=== PATIENT | male | born 1960 | race Caucasian/White ===

== ENCOUNTER 2024-03-13 14:10 | Inpatient (IN) ==
[2024-03-13 14:52] LABS: Hemoglobin 13.1 g/dl (14.0-18.0); Mean Corpuscular Hemoglobin 28.7 pg (25.0-34.0); Mean Corpuscular Hgb Conc 33.6 g/dL (32.0-36.0); Mean Corpuscular Volume 85.5 fL (80.0-100.0); Mean Platelet Volume 10.5 fL (9.4-12.4); Platelet Count 351 K/uL (130-400); RDW Coefficient of Variation 13.3 % (11.5-14.5); RDW Standard Deviation 41.6 fL (36.4-46.3); Red Blood Count 4.56 M/uL (4.70-6.10); White Blood Count 15.95 K/ul (4.8-10.8)
[2024-03-13 15:03] LABS: Partial Thromboplastin Ratio 1.3; Partial Thromboplastin Time 34 Seconds (21-31)
[2024-03-13 15:12] LABS: Albumin Globulin Ratio 1.1 (0.9-2); Albumin Level 3.8 gm/dl (3.4-5.0); BUN Creatinine Ratio 14.4 (10-20); Bilirubin,Total 0.5 mg/dl (0.2-1.0); Calcium 9.1 mg/dl (8.6-10.3); Creatinine Clr Calc Pharmacy 20.2 ml/min; Est GFR (African American) 16.2 ml/min; Est GFR (Non-African American) 13.9 ml/min; Globulin 3.4 gm/dl (2.5-4.0); Magnesium 1.9 mg/dl (1.7-2.4); Potassium 3.8 mmol/L (3.5-5.1); Total Protein 7.2 gm/dl (6.0-8.3)
--- NOTE | 2024-03-13 15:21 | XRay Report ---
SINGLE VIEW CHEST CLINICAL HISTORY: Sepsis. FINDINGS: A PA chest radiograph is compared to study dated 03/17/2015. The cardiomediastinal silhouette is unremarkable noting atherosclerotic calcification of the thoracic aorta. There are scattered calc ified granulomas, as well as scattered foci of parenchymal scarring. No airspace consolidation or ple ural effusion is identified. No pneumothorax is seen. The bony thorax is grossly intact. IMPRESSION: No acute cardiopulmonary abnormality. ACT 112: Negative or not required by law. Electronically signed by: Min Harrington M.D. 03/13/2024 3:20 PM
[2024-03-13 15:54] LABS: Basophils # (auto) 0.06 K/uL (0.00-0.20); Basophils % (auto) 0.4 %; Eosinophils # (auto) 0.17 K/uL (0.00-0.50); Eosinophils % (auto) 1.1 %; Immature Granulocytes # (auto) 0.06 K/uL (0.01-0.20); Immature Granulocytes % (auto) 0.4 %; Lymphocytes # (auto) 7.22 K/uL (1.20-3.40); Lymphocytes % (auto) 45.3 %; Monocytes # (auto) 0.99 K/uL (0.11-0.59); Monocytes % (auto) 6.2 %; Neutrophils # (auto) 7.45 K/uL (1.40-6.50); Neutrophils % (auto) 46.6 %; Polychromasia 1+
[2024-03-13 16:09] LABS: Appearance Urine Clear (Clear); Bacteria Urine Automated None Seen (None Seen); Bilirubin Urine Negative (Negative); Blood Urine Trace (Negative); Color Urine Yellow; Epithelial Cell Urine Auto 0-2 /hpf (0-2); Glucose Urine UA Negative (Negative); Ketones Urine Trace (Negative); Leukocyte Esterase Urine Trace (Negative); Nitrite Urine Negative (Negative); Protein Urine Trace (Negative); Urobilinogen Urine Negative (Negative); WBC Urine Automated 0-5 /hpf (0-5)
--- NOTE | 2024-03-13 16:21 | Emergency Department Note ---
Impression & Plan MORTEZA (acute kidney injury), Vomiting, Leukocytosis ED Provider Note NAME: AMBROCIO ENCINAS AGE: 64 SEX: M : 1960 ARRIVES VIA: Walk-In INFORMANT: Patient ED PROVIDER(S): Frankie Nascimento DO CHIEF COMPLAINT: weakness HPI: Patient is a 64-year-old male with a past medical history of diabetes, NSTEMI, CVA and CAD who presents to the ER for weakness. He notes he has not been feeling well for the past several days. He follow-up with his PCP and had blood work done which showed a creatinine of 6 and was referred in for MORTEZA. He notes on Monday he was having some vomiting and has been having diarrhea for the past several days. Denies any chest pain or shortness of breath. No dysuria, urgency, or frequency. No other exacerbating or remitting factors. He thinks he was drinking slightly less than usual but believes that he has increased that intake. ADDITIONAL HISTORY OBTAINED: Per HPI Chronic Medical/Social Conditions Affecting Care: Per HPI PAST MEDICAL HISTORY:See Below PAST SURGICAL HISTORY:See Below FAMILY HISTORY:See Below SOCIAL HISTORY:See Below HOME MEDICATIONS:See Below ALLERGIES:See Below VITALS:See Below PHYSICAL EXAMINATION: GENERAL: Sitting up in bed, alert, well appearing, well nourished, no distress, non-toxic EYE EXAM: normal conjunctiva. OROPHARYNX: no exudate, no erythema, lips, buccal mucosa, and tongue normal and mucous membranes are moist NECK: supple, no nuchal rigidity, no adenopathy, non-tender LUNGS: Clear to auscultation. Normal chest wall mechanics HEART: no murmurs, S1 normal and S2 normal ABDOMEN: abdomen soft, non-tender, normo-active bowel sounds, no masses, no rebound or guarding. BACK: Back is symmetrical on inspection and there is no deformity, no midline tenderness, no CVA tenderness. SKIN: no rashes and no bruising UPPER EXTREMITIES: upper extremities are grossly normal. LOWER EXTREMITIES: No pitting edema. NEURO EXAM: Normal sensorium, cranial nerves II-XII grossly intact, normal speech, no gross weakness of arms, no gross weakness of legs. MEDICAL DECISION MAKING: Patient is a 64-year-old male who presents the ER for the above-stated complaint. IV was established medicals obtained. External records reviewed from [facility] and [facility] on creatinine was 1.5 back in 2022 and just within the past 24hrs was 6. Labs show leukocytosis of 15,000. No significant anemia. INR was unremarkable. BMP with a creatinine of 4.3 up from a baseline of 1. LFTs was fairly unremarkable. Bilirubin was normal. Pro-Ata 0.95. UA without infection. CT abdomen pelvis showed edema of the gallbladder wall and concern for acute cholecystitis. ID discussed case with the hospitalist for further evaluation management treatment. He was given 2 L normal saline as well as IV Zosyn. Discussed with general surgery who recommended a HIDA scan and ultrasound from the hospitalist and they will evaluate. Patient currently has no abdominal pain on exam. Will defer to general surgery for acute cholecystitis versus GI bug. Consults/Care Managements Discussions: Per MDM Triage Nursing notes reviewed. Limited review of prior medical records performed Vital Signs: reviewed and remarkable for no significant abnormalities Differential diagnosis: Infection, dehydration, metabolic abnormality, hypo/hyperglycemia, electrolyte disturbance, anemia, hypoxia, cardiac sources, intracerebral event, toxicologic, neurologic, as well as other pathologies. ER treatment provided: See below Diagnostics interpreted by me include EKG and cardiac monitoring as listed below: -Cardiac Monitoring: An order was placed for continuous cardiac monitoring. The monitor shows a rate of 80 with sinus rhythm. -ECG: none -Laboratory studies:Interpreted by me as stated above in MDM and shown below. Imaging studies: Xrays: As interpreted by me: Portable AP upright 1 view of the chest shows no focal infiltrate CTs show: CT abdomen pelvis shows acute cholecystitis Procedures:none Critical Care: None Past Med/Surg History Problem List (Updated 03/13/24 @ 19:10 by Frankie Nascimento DO) Leukocytosis (Acute) Vomiting (Acute) MORTEZA (acute kidney injury) (Acute) Tobacco use Sepsis Abnormal CT of the abdomen CKD (chronic kidney disease), stage III MORTEZA (acute kidney injury) Paroxysmal atrial flutter Diabetes mellitus, type II Elevated LFTs Leukocytosis Acute cholecystitis Complex renal cyst Diabetes Non-STEMI (non-ST elevated myocardial infarction) (Acute) Tachycardia (Acute) Hypertensive urgency (Acute) History of CVA (cerebrovascular accident) (Chronic) "2009 and 2012" Hypertension (Chronic) CAD (coronary artery disease) (Chronic) "s/p stent placement 2008" History of renal cell cancer (Chronic) "s/p left nephrectomy" CVA (cerebral infarction) (Acute) Stroke (Acute) Medical History High cholesterol Surgical History H/O heart surgery H/O hernia repair (09/30/12) H/O kidney removal (09/30/12) Family History Family/Other Hypertension Heart disease Social History Smoking Status: Former smoker Hx Alcohol Use: Yes marital status: current occupational status: employed 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 Feels Safe at Home: Yes Allergies Allergies Allergy/AdvReac Type Severity Reaction Status Date / Time No Known Allergies Allergy Unknown Verified 03/13/24 17:12 Home Meds Home Medications Medication Instructions Recorded Confirmed amoxicillin 875 mg-potassium 1 tab PO BID 03/13/24 03/13/24 clavulanate 125 mg tablet apixaban 5 mg tablet (Eliquis) 5 mg PO BID 03/13/24 03/13/24 aspirin 81 mg tablet,delayed 81 mg PO QAM 03/13/24 03/13/24 release atorvastatin 40 mg tablet 40 mg PO PM 03/13/24 03/13/24 dulaglutide 0.75 mg/0.5 mL 0.75 mg subcut WK 03/13/24 03/13/24 subcutaneous pen injector (Trulicity) hydrochlorothiazide 25 mg tablet 25 mg PO QAM 03/13/24 03/13/24 lisinopril 40 mg tablet 40 mg PO DAILY 03/13/24 03/13/24 metformin 500 mg tablet,extended 500 mg PO BID 03/13/24 03/13/24 release 24 hr metoprolol succinate 50 mg 75 mg PO BID 03/13/24 03/13/24 tablet,extended release 24 hr Previous Rx's Medication Instructions Recorded Nitroglycerin (Nitrostat) 0.4 mg sublingual UD PRN Chest 03/21/15 Pain ##30 Results & Data (ED) Vital Signs Vital Signs - 24 hr 03/13/24 14:13 03/13/24 16:55 03/13/24 17:19 Temperature 36.3 C L Temperature Source Oral Pulse Rate 95 H 84 Pulse Rate [Finger] 86 Pulse Rhythm Regular Respiratory Rate 20 24 Respiratory Effort / Characteristics Non-Labored Spontaneous Respiratory Depth Normal Blood Pressure 103/71 Blood Pressure [Right Arm] 112/91 Blood Pressure Mean 81 Blood Pressure Mean [Right Arm] 98 Pulse Oximetry 96 98 Oxygen Delivery Method Room Air Room Air Sepsis Recent Fever Within 48 Hours No Sepsis New/Unexplained Change in Mental Status No Sepsis Action Taken by Nursing No Action Required 03/13/24 19:00 Temperature Temperature Source Pulse Rate Pulse Rate [Finger] 81 Pulse Rhythm Respiratory Rate 18 Respiratory Effort / Characteristics Respiratory Depth Blood Pressure Blood Pressure [Right Arm] 117/72 Blood Pressure Mean Blood Pressure Mean [Right Arm] 87 Pulse Oximetry 98 Oxygen Delivery Method Room Air Sepsis Recent Fever Within 48 Hours Sepsis New/Unexplained Change in Mental Status Sepsis Action Taken by Nursing Laboratory Data 03/13/24 14:32 03/13/24 14:32 Lab Results 03/13/24 03/13/24 03/13/24 Range/Units 14:32 18:26 Unknown WBC 15.95 H (4.8-10.8) K/ul RBC 4.56 L (4.70-6.10) M/uL Hgb 13.1 L (14.0-18.0) g/dl Hct 39.0 L (42.0-52.0) % MCV 85.5 (80.0-100.0) fL MCH 28.7 (25.0-34.0) pg MCHC 33.6 (32.0-36.0) g/dL RDW Std Deviation 41.6 (36.4-46.3) fL RDW Coeff of Vidya 13.3 (11.5-14.5) % Plt Count 351 (130-400) K/uL MPV 10.5 (9.4-12.4) fL Immature Gran % (Auto) 0.4 % Neut % (Auto) 46.6 % Lymph % (Auto) 45.3 % [place] % (Auto) 6.2 % Eos % (Auto) 1.1 % Baso % (Auto) 0.4 % Neut # (Auto) 7.45 H (1.40-6.50) K/uL Lymph # (Auto) 7.22 H (1.20-3.40) K/uL [place] # (Auto) 0.99 H (0.11-0.59) K/uL Eos # (Auto) 0.17 (0.00-0.50) K/uL Baso # (Auto) 0.06 (0.00-0.20) K/uL Immature Gran # (Auto) 0.06 (0.01-0.20) K/uL Polychromasia 1+ PT 11.0 (9.0-12.0) Seconds INR 1.0 (0.9-1.1) APTT 34 H (21-31) Seconds PTT Ratio 1.3 Sodium 134 L (136-145) mmol/L Potassium 3.8 (3.5-5.1) mmol/L Chloride 98 (98-107) mmol/L Carbon Dioxide 23 (21-32) mmol/L Anion Gap 13 H (3-11) BUN 61 H (6-23) mg/dl Creatinine 4.23 H (0.6-1.4) mg/dl Est Cr Clr Drug Dosing 20.2 ml/min Est GFR ( Amer) 16.2 ml/min Est GFR (Non-Af Amer) 13.9 ml/min BUN/Creatinine Ratio 14.4 (10-20) Glucose 258 H (70-99(Fasting)) mg/dl Lactate 1.7 (0.4-2.0) mmol/L Calcium 9.1 (8.6-10.3) mg/dl Magnesium 1.9 (1.7-2.4) mg/dl Total Bilirubin 0.5 (0.2-1.0) mg/dl AST 48 H (13-39) U/L ALT 72 H (7-52) U/L Alkaline Phosphatase 106 H (34-104) U/L Troponin I High Sens 18.0 (0-20) pg/ml Total Protein 7.2 (6.0-8.3) gm/dl Albumin 3.8 (3.4-5.0) gm/dl Globulin 3.4 (2.5-4.0) gm/dl Albumin/Globulin Ratio 1.1 (0.9-2) Procalcitonin 0.95 H (0-0.5) ng/ml Urine Color Yellow Urine Appearance Clear (Clear) Urine pH 5.0 (4.5-7.5) Ur Specific [place] 1.020 (1.000-1.030) Urine Protein Trace H (Negative) Urine Glucose (UA) Negative (Negative) Urine Ketones Trace H (Negative) Urine Blood Trace H (Negative) Urine Nitrite Negative (Negative) Urine Bilirubin Negative (Negative) Urine Urobilinogen Negative (Negative) Ur Leukocyte Esterase Trace H (Negative) Urine WBC (Auto) 0-5 (0-5) /hpf Urine RBC (Auto) 6-10 H (0-2) /hpf U Hyaline Cast (Auto) 6-10 H (0-2) /lpf U Epithel Cells (Auto) 0-2 (0-2) /hpf Urine Bacteria (Auto) None Seen (None Seen) Administered Medications Discontinued Medications Sodium Chloride (Nss) 1,000 mls @ 999 mls/hr IV .Q1H1M HARVEY Stop: 03/13/24 18:30 Last Admin: 03/13/24 18:17 Dose: 999 mls/hr Documented By: Infusion: 03/13/24 17:55 Dose: Infused Documented By: Admin: 03/13/24 16:54 Dose: 999 mls/hr Documented By: CHANDU Piperacillin Sod/Tazobactam Sod (Zosyn) 4.5 gm in 100 mls @ 200 mls/hr IV NOW ONE Stop: 03/13/24 17:31 Last Infusion: 03/13/24 17:48 Dose: Infused Documented By: Admin: 03/13/24 17:14 Dose: 200 mls/hr Documented By: CHANDU Imaging Data Radiologist's Impression: Chest X-Ray 03/13/24 14:18 SINGLE VIEW CHEST CLINICAL HISTORY: Sepsis. FINDINGS: A PA chest radiograph is compared to study dated 03/17/2015. The cardiomediastinal silhouette is unremarkable noting atherosclerotic calcification of the thoracic aorta. There are scattered calcified granulomas, as well as scattered foci of parenchymal scarring. No airspace consolidation or pleural effusion is identified. No pneumothorax is seen. The bony thorax is grossly intact. IMPRESSION: No acute cardiopulmonary abnormality. ACT 112: Negative or not required by law. Electronically signed by: Min Harrington M.D. 03/13/2024 3:20 PM Abdomen/Pelvis CT 03/13/24 16:[address] WITHOUT CONTRAST CT DOSE: 1358.95 mGy.cm HISTORY: Nausea. Vomiting. TECHNIQUE: Multiaxial CT images of the abdomen and pelvis were performed without contrast. A dose lowering technique was utilized adhering to the principles of ALARA. COMPARISON STUDY: Renal CT 05/12/2021. Abdominal MRI 12/29/2020. FINDINGS: 4 mm triangular shaped nodule within the right middle lobe on image 15, unchanged. There is a 4 mm nodule within the left lower lobe on image 14, unchanged. These are likely benign given the stability. No pneumoperitoneum. No pneumatosis. No acute fractures. No suspicious lytic or blastic osseous lesions. Severe coronary artery calcifications are noted. Stable prominent right anterior diaphragmatic lymph node. Multiple small fat-containing midline supraumbilical hernias are again noted. There is a small fat-containing left inguinal hernia. There is a 2 cm duodenal diverticulum. Stable 5 mm hypodense lesion within the right hepatic lobe. This is too small to characterize but favors a cyst. The spleen is mildly enlarged measuring 14 cm in length. This remains unchanged. Multiple right adrenal gland nodules remain stable. Prior left nephrectomy. Multiple hypodense lesions within the right kidney are again noted. One of these lesions contains a 14 mm peripheral nodular focus best seen on image 138. There is an indeterminate intermediate density lesion within the mid right kidney image 164 measuring 10 mm. No right renal stones or right-sided hydronephrosis. 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 The unenhanced pancreas is unremarkable. There is gallbladder wall thickening with pericholecystic inflammatory change. This is consistent with acute cholecystitis. Normal caliber common bile duct. Mild periportal lymphadenopathy has slightly progressed. This may be reactive. Otherwise, no retroperitoneal lymphadenopathy. No pelvic lymphadenopathy or pelvic free fluid. Normal bladder. The prostate gland is enlarged. Suboptimal evaluation for bowel pathology due to the lack of intravenous and oral contrast. However, there is no definite bowel wall thickening or obstruction. Normal appendix. Fluid-filled colon. This could represent a diarrheal illness. IMPRESSION: 1. Gallbladder wall thickening with associated pericholecystic inflammatory change. This is consistent with an acute cholecystitis. Surgical consultation recommended. 2. Fluid-filled nondistended colon which may represent a diarrheal illness. 3. No evidence for a bowel obstruction. 4. Multiple right renal hypodense lesions again noted. The dominant hypodense lesion within the upper pole contains a peripheral 14 mm nodular density. This is increased in size in the interval. Follow-up nonemergent dedicated renal MRI is recommended for further evaluation. 5. There is also an indeterminate 10 mm mid right renal lesion. This can also be assessed on follow-up MRI. 6. Mild periportal lymphadenopathy which has progressed. This may be reactive to the acute cholecystitis. 7. Additional findings as described above. ACT 112: Negative or not required by law. Electronically signed by: Peter Jessica M.D. 03/13/2024 4:55 PM Discharge Plan Visit Data Chief Complaint: Urinary Symptoms Stated Complaint: ABN LABS, SEPTIC FROM BLADDER INFECTION ED Provider: Frankie Nascimento Discharge Problem: MORTEZA (acute kidney injury), Vomiting, Leukocytosis Forms Stand Alone Forms: [employer] Prescriptions Prescriptions: No Action Nitroglycerin (Nitrostat) 0.4 MG/1 TAB SUBLING TAB 0.4 mg Sublingual UD PRN (Reason: Chest Pain) Qty: 30 0RF metoprolol succinate 50 mg tablet extended release 24 hr 75 mg PO BID hydrochlorothiazide 25 mg tablet 25 mg PO QAM metformin 500 mg tablet extended release 24 hr 500 mg PO BID amoxicillin-pot clavulanate 875-125 mg tablet 1 tab PO BID Eliquis 5 mg tablet 5 mg PO BID Trulicity 0.75 mg/0.5 mL pen injector 0.75 mg SUBCUT WK Rx Instructions: ON SUNDAYS, PT IS UNSURE OF DOSE lisinopril 40 mg Tablet 40 mg PO DAILY atorvastatin 40 mg tablet 40 mg PO PM aspirin 81 mg Tablet,Delayed Release (Dr/Ec) 81 mg PO QAM Referrals Referrals: Marty Saul MD [Primary Care Provider] - Discharge Problem: Vomiting Qualifiers: Vomiting type: unspecified Nausea presence: unspecified Qualified Code(s): R 11.10 - Vomiting, unspecified Leukocytosis Qualifiers: Leukocytosis type: unspecified Qualified Code(s): D72.829 - Elevated white blood cell count, unspecified
--- NOTE | 2024-03-13 16:43 | History & Physical Report ---
Date of Service March 13, 2024 Assessment & Plan (1) Acute cholecystitis: (2) Sepsis: (3) Leukocytosis: (4) Elevated LFTs: Plan: Meets Sepsis Criteria Patient is 64 year old male with PMH CAD s/p stent, atrial flutter s/p DCCV, CVA, HTN, DM II, CKD III, renal CA s/p nephrectomy, depression, tobacco use presented to ER with c/o tactile fevers and chills x 5 days and abnormal labs with outpatient WBC: 21 and Cr: 6.0 on 03/12/24. In ER afebrile, BP: 95, R: 20, BP 103/71, 96% on room air. WBC: 15.9, procalcitonin: 0.95. T. bili: 0.5, AST: 48, ALT: 72, alk phos: 106. CT abd/pelvis: 1. Gallbladder wall thickening with associated pericholecystic inflammatory change. This is consistent with an acute cholecystitis. Surgical consultation recommended. 2. Fluid-filled nondistended colon which may represent a diarrheal illness. 3. No evidence for a bowel obstruction. Lactate pending Obtain blood culture In ER given Zosyn and 2L NSS IV Tylenol prn pain. Patient denies pain currently Zosyn IVF NPO Hold Eliquis General surgery consult. Was notified by ER physician CBC, CMP in am (5) MORTEZA (acute kidney injury): (6) CKD (chronic kidney disease), stage III: Plan: BUN: 61, Cr: 4.2. 03/12/24 Cr: 6.0. Prior baseline 1.6 IVF Hold HCTZ, lisinopril Monitor renal functions Monitor urine output Nephrology consult (7) Abnormal CT of the abdomen: Plan: CT abd/pelvis:Multiple right renal hypodense lesions again noted. The dominant hypodense lesion within the upper pole contains a peripheral 14 mm nodular density. This is increased in size in the interval. Follow-up nonemergent dedicated renal MRI is recommended for further evaluation.There is also an indeterminate 10 mm mid right renal lesion. This can also be assessed on follow- up MRI. Will need further follow up (8) Diabetes mellitus, type II: Plan: Gluc: 258 A1c: >8.0 on 05/05/23 Hold home metformin and Trulicity Novolog sliding scale correction only at this time as is NPO A1c in am (9) Hypertension: Plan: BP 112/91 Hold home HCTZ, lisinopril (10) CAD (coronary artery disease): Plan: S/P stent Denies CP, SOB Hold aspirin for now and resume when able Continue metoprolol succinate, atorvastatin (11) History of CVA (cerebrovascular accident): Plan: Hold aspirin for now and resume when able Continue metoprolol succinate, atorvastatin (12) Paroxysmal atrial flutter: Plan: Current sinus rhythm Hold Eliquis Continue metoprolol succinate with holding parameters (13) Tobacco use: Plan: Smoking cessation encouraged Nicotine patch (14) History of renal cell cancer: Plan: S/P nephrectomy DVT Prophylaxis SCDs Admit med tele Full Code as per discussion with pt Follows with Dr Saul for routine care Pt was seen and care coordinated with Dr Oneil. See addendum I spent a total of 75 minutes reviewing notes, outpatient records, labs, medication, coordinating, documenting and providing care for this patient excluding time spent in the performance of separately billed services. History of Present Illness Chief Complaint: abnormal outpatient labs Primary Care Provider: Marty Saul MD Patient is 64 year old male with PMH CAD s/p stent, atrial flutter s/p DCCV, CVA, HTN, DM II, CKD III, renal CA s/p nephrectomy, depression, tobacco use presented to ER with c/o abnormal labs. Patient states 6 days ago had onset of tactile fever, chills and was feeling tired. He also noted a decreased appetite. 5 days ago had 1 episode of emesis. Patient reports has continued chills and decreased appetite. He has not taken his temperature at home. States yesterday had 2 BMs the last BM being a little bit on the looser side but denies any diarrhea. States feeling lightheaded with standing but denies syncope. Hasn't noticed abdominal pain. Seen in outpatient clinic on 03/12/24 and per note review patient noted to be hypotensive was instructed to hold his lisinopril and he was started on Augmentin for possible UTI. 03/12/24 labs with Cr: 6.0 and WBC: 21 and was instructed to come to ER today. Denies hematemesis, melena, HOWARD, syncope, vision changes, neck pain, CP, SOB, orthopnea, palpitation s, cough, sore throat, otalgia, rhinorrhea, paresthesias, weakness, extremity weakness, extremity edema, rashes, dysuria, hematuria, urinary frequency. Allergies Allergy/AdvReac Type Severity Reaction Status Date / Time No Known Allergies Allergy Unknown Verified 03/13/24 17:12 Home Medications Medication Instructions Recorded Confirmed Type Nitroglycerin (Nitrostat) 0.4 mg sublingual UD PRN Chest 03/21/15 03/13/24 Rx Pain ##30 amoxicillin 875 mg-potassium 1 tab PO BID 03/13/24 03/13/24 History clavulanate 125 mg tablet apixaban 5 mg tablet (Eliquis) 5 mg PO BID 03/13/24 03/13/24 History aspirin 81 mg tablet,delayed 81 mg PO QAM 03/13/24 03/13/24 History release atorvastatin 40 mg tablet 40 mg PO PM 03/13/24 03/13/24 History dulaglutide 0.75 mg/0.5 mL 0.75 mg subcut WK 03/13/24 03/13/24 History subcutaneous pen injector (Trulicity) hydrochlorothiazide 25 mg tablet 25 mg PO QAM 03/13/24 03/13/24 History lisinopril 40 mg tablet 40 mg PO DAILY 03/13/24 03/13/24 History metformin 500 mg tablet,extended 500 mg PO BID 03/13/24 03/13/24 History release 24 hr metoprolol succinate 50 mg 75 mg PO BID 03/13/24 03/13/24 History tablet,extended release 24 hr Past Med/Surg History Problem List (Updated 03/13/24 @ 19:13 by Franko Simpson PAIrvingC) Cholecystitis Leukocytosis (Acute) Vomiting (Acute) MORTEZA (acute kidney injury) (Acute) Tobacco use Sepsis Abnormal CT of the abdomen CKD (chronic kidney disease), stage III MORTEZA (acute kidney injury) Paroxysmal atrial flutter Diabetes mellitus, type II Elevated LFTs Leukocytosis Acute cholecystitis Complex renal cyst Diabetes Non-STEMI (non-ST elevated myocardial infarction) (Acute) Tachycardia (Acute) Hypertensive urgency (Acute) History of CVA (cerebrovascular accident) (Chronic) "2009 and 2012" Hypertension (Chronic) CAD (coronary artery disease) (Chronic) "s/p stent placement 2008" History of renal cell cancer (Chronic) "s/p left nephrectomy" CVA (cerebral infarction) (Acute) Stroke (Acute) Medical History High cholesterol Surgical History H/O heart surgery H/O hernia repair (09/30/12) H/O kidney removal (09/30/12) Family History Family/Other Hypertension Heart disease Social History Smoking Status: Current every day smoker Tobacco Type: Cigarettes Cigarettes Per Day: 1/3 PPD; Second Hand Exposure: No; Do You Dip or Chew Tobacco: No; Tobacco Cessation Education Requested by Patient: Yes Hx Alcohol Use: Yes Alcohol type: beer Hx Substance Use: Yes Last Used Substance Other:: 12 years ago Preferred Language: Arabic Communication Ability: Effective Communication Ability Comment: expressive aphasia Child & Adolescent Psychiatrist Required: No Beliefs That Will Affect Care: None marital status: Current Living Situation: Alone current occupational status: employed 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 Other Information That Helps Us Care for You: No Feels Safe at Home: Yes Safety Concerns: Feels Safe At This Time Assistive Devices: Denture - Upper, Denture - Lower and Glasses Assistive Devices Comment: daughter will bring in glasses Review of Systems Review of Systems: All systems reviewed & are unremarkable except as noted in HPI & below Physical Exam Physical Exam: General: no acute distress, WDWN Head: normocephalic, atraumatic Eyes: PERRL, EOM's intact, conjunctiva non-injected, anicteric ENT: normal inspection external ears, nose, mucous membranes moist Neck: supple, trachea midline Lungs: clear, no respiratory distress, no wheezing/rhonchi/rales CV: RRR, no murmur, no pretibial edema Abd: normal BS, soft, +tenderness to deep palpation RUQ without rebound or guarding Ext: no cyanosis, no calf tenderness Neuro: A&O x 3, no focal deficits noted, normal affect Skin: warm, dry Results & Data Results & Data Vital Signs (Past 12 Hours) Vital Signs Temp Pulse Resp BP Pulse Ox O2 Del Method 03/13/24 14:13 36.3 C L 95 H 20 103/71 96 Room Air Laboratory Results Short CBC 03/13/24 Range/Units 14:32 WBC 15.95 H (4.8-10.8) K/ul Hgb 13.1 L (14.0-18.0) g/dl Hct 39.0 L (42.0-52.0) % Plt Count 351 (130-400) K/uL BMP 03/13/24 14:32 Sodium 134 L Potassium 3.8 Chloride 98 Carbon Dioxide 23 BUN 61 H Creatinine 4.23 H Glucose 258 H Calcium 9.1 Liver Function 03/13/24 Range/Units 14:32 Total Bilirubin 0.5 (0.2-1.0) mg/dl AST 48 H (13-39) U/L ALT 72 H (7-52) U/L Alkaline Phosphatase 106 H (34-104) U/L Albumin 3.8 (3.4-5.0) gm/dl Urine 03/13/24 Range/Units Unknown Urine Color Yellow Urine Appearance Clear (Clear) Urine pH 5.0 (4.5-7.5) Ur Specific [place] 1.020 (1.000-1.030) Urine Protein Trace H (Negative) Urine Glucose (UA) Negative (Negative) Diagnostic Findings Chest X-Ray 03/13/24 14:18 SINGLE VIEW CHEST CLINICAL HISTORY: Sepsis. FINDINGS: A PA chest radiograph is compared to study dated 03/17/2015. The cardiomediastinal silhouette is unremarkable noting atherosclerotic calcification of the thoracic aorta. There are scattered calcified granulomas, as well as scattered foci of parenchymal scarring. No airspace consolidation or pleural effusion is identified. No pneumothorax is seen. The bony thorax is grossly intact. IMPRESSION: No acute cardiopulmonary abnormality. ACT 112: Negative or not required by law. Electronically signed by: Min Harrington M.D. 03/13/2024 3:20 PM Abdomen/Pelvis CT 03/13/24 16:[address] WITHOUT CONTRAST CT DOSE: 1358.95 mGy.cm HISTORY: Nausea. Vomiting. TECHNIQUE: Multiaxial CT images of the abdomen and pelvis were performed without contrast. A dose lowering technique was utilized adhering to the principles of ALARA. COMPARISON STUDY: Renal CT 05/12/2021. Abdominal MRI 12/29/2020. FINDINGS: 4 mm triangular shaped nodule within the right middle lobe on image 15, unchanged. There is a 4 mm nodule within the left lower lobe on image 14, unchanged. These are likely benign given the stability. No pneumoperitoneum. No pneumatosis. No acute fractures. No suspicious lytic or blastic osseous lesions. Severe coronary artery calcifications are noted. Stable prominent right anterior diaphragmatic lymph node. Multiple small fat-containing midline supraumbilical hernias are again noted. There is a small fat-containing left inguinal hernia. There is a 2 cm duodenal diverticulum. Stable 5 mm hypodense lesion within the right hepatic lobe. This is too small to characterize but favors a cyst. The spleen is mildly enlarged measuring 14 cm in length. This remains unchanged. Multiple right adrenal gland nodules remain stable. Prior left nephrectomy. Multiple hypodense lesions within the right kidney are again noted. One of these lesions contains a 14 mm peripheral nodular focus best seen on image 138. There is an indeterminate intermediate density lesion within the mid right kidney image 164 measuring 10 mm. No right renal stones or right-sided hydronephrosis. 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 The unenhanced p ancreas is unremarkable. There is gallbladder wall thickening with pericholecystic inflammatory change. This is consistent with acute cholecystitis. Normal caliber common bile duct. Mild periportal lymphadenopathy has slightly progressed. This may be reactive. Otherwise, no retroperitoneal lymphadenopathy. No pelvic lymphadenopathy or pelvic free fluid. Normal bladder. The prostate gland is enlarged. Suboptimal evaluation for bowel pathology due to the lack of intravenous and oral contrast. However, there is no definite bowel wall thickening or obstruction. Normal appendix. Fluid-filled colon. This could represent a diarrheal illness. IMPRESSION: 1. Gallbladder wall thickening with associated pericholecystic inflammatory change. This is consistent with an acute cholecystitis. Surgical consultation recommended. 2. Fluid-filled nondistended colon which may represent a diarrheal illness. 3. No evidence for a bowel obstruction. 4. Multiple right renal hypodense lesions again noted. The dominant hypodense lesion within the upper pole contains a peripheral 14 mm nodular density. This is increased in size in the interval. Follow-up nonemergent dedicated renal MRI is recommended for further evaluation. 5. There is also an indeterminate 10 mm mid right renal lesion. This can also be assessed on follow-up MRI. 6. Mild periportal lymphadenopathy which has progressed. This may be reactive to the acute cholecystitis. 7. Additional findings as described above. ACT 112: Negative or not required by law. Electronically signed by: Peter Jessica M.D. 03/13/2024 4:55 PM Supervising Physician Co-Signing Physician Notes Pt was seen and examined by myself, Barbi Oneil MD on the day of service. Care was coordinated with , BRAXTON/KALYN. 64yoM with significant cardiac Hx presenting with acute cholecystitis. Also presenting with MORTEZA on CKD, cr of 4.23 Comfortable on exam, RRR, abd tender general surgery consulted, appreciate recs Nephrology consulted, appreciate recs IV zosyn, fluids, NPO after midnight. Follow blood cx. Otherwise as above. I spent a total [id number] coordinating, documenting, and providing care for this patient excluding time spent in the performance of separately billed services
[2024-03-13] MEDS: SODIUM CHLORIDE 0.9% 1,000 ML IV SCH ×2 (16:54→23:42)
--- NOTE | 2024-03-13 16:57 | CT Scan Report ---
ABDOMEN AND PELVIS CT WITHOUT CONTRAST CT DOSE: 1358.95 mGy.cm HISTORY: Nausea. Vomiting. TECHNIQUE: Multiaxial CT images of the abdomen and pelvis were performed without contrast. A dose lo wering technique was utilized adhering to the principles of ALARA. COMPARISON STUDY: Renal CT 05/12/2021. Abdominal MRI 12/29/2020. FINDINGS: 4 mm triangular shaped nodule within the right middle lobe on image 15, unchanged. There is a 4 mm nodule within the left lower lobe on image 14, unchanged. These are likely benign given the s tability. No pneumoperitoneum. No pneumatosis. No acute fractures. No suspicious lytic or blastic oss eous lesions. Severe coronary artery calcifications are noted. Stable prominent right anterior diaphr agmatic lymph node. Multiple small fat-containing midline supraumbilical hernias are again noted. The re is a small fat-containing left inguinal hernia. There is a 2 cm duodenal diverticulum. Stable 5 mm hypodense lesion within the right hepatic lobe. This is too small to characterize but favors a cyst. The spleen is mildly enlarged measuring 14 cm in length. This remains unchanged. Multiple right adre nal gland nodules remain stable. Prior left nephrectomy. Multiple hypodense lesions within the right kidney are again noted. One of these lesions contains a 14 mm peripheral nodular focus best seen on i mage 138. There is an indeterminate intermediate density lesion within the mid right kidney image 164 measuring 10 mm. No right renal stones or right-sided hydronephrosis. Stable 11 mm distal right shaista l artery aneurysm on image 152. The unenhanced pancreas is unremarkable. There is gallbladder wall th ickening with pericholecystic inflammatory change. This is consistent with acute cholecystitis. Cheli l caliber common bile duct. Mild periportal lymphadenopathy has slightly progressed. This may be reac tive. Otherwise, no retroperitoneal lymphadenopathy. No pelvic lymphadenopathy or pelvic free fluid. Normal bladder. The prostate gland is enlarged. Suboptimal evaluation for bowel pathology due to the lack of intravenous and oral contrast. However, there is no definite bowel wall thickening or obstruc tion. Normal appendix. Fluid-filled colon. This could represent a diarrheal illness. IMPRESSION: 1. Gallbladder wall thickening with associated pericholecystic inflammatory change. This is consisten t with an acute cholecystitis. Surgical consultation recommended. 2. Fluid-filled nondistended colon which may represent a diarrheal illness. 3. No evidence for a bowel obstruction. 4. Multiple right renal hypodense lesions again noted. The dominant hypodense lesion within the upper pole contains a peripheral 14 mm nodular density. This is increased in size in the interval. Follow- up nonemergent dedicated renal MRI is recommended for further evaluation. 5. There is also an indeterminate 10 mm mid right renal lesion. This can also be assessed on follow-u p MRI. 6. Mild periportal lymphadenopathy which has progressed. This may be reactive to the acute cholecysti tis. 7. Additional findings as described above. ACT 112: Negative or not required by law. Electronically signed by: Peter Jessica M.D. 03/13/2024 4:55 PM
[2024-03-13] MEDS: PIPERACILLIN/TAZOBACTAM 4.5 GM/100 ML BAG IV ONE (17:14)
--- NOTE | 2024-03-13 19:15 | Surgery Consultation ---
Date of Consultation March 13, 2024 Assessment & Plan (1) Cholecystitis: The patient has been admitted on the hospitalist service. From surgery perspective regarding his cholecystitis we recommend the following: The patient has been initiated on antibiotics in form of Zosyn which should continue IV fluid should be provided for hydration As the patient is not having abdominal pain I feel be acceptable for him to have clear liquids but he should be made n.p.o. after midnight tonight until it is ascertained whether or not he will have any procedural intervention on 03/14/2024 Serial labs to be followed to see if there is any worsening of his LFTs I will check a gallbladder ultrasound for further delineation of his biliary system Would be preferable for patient to be off his Eliquis for several days prior to entertaining any surgical intervention Due to the patient's known cardiovascular disease and the fact that he has not seen his dean of chapel and what he describes as 6 months will be beneficial to have his dean of chapel see him prior to entertaining any surgical intervention. The patient is noted to have acute kidney injury and be preferable to have this parameter optimized prior to entertaining any surgical invention as well. Nephrotoxins should be avoided and the primary service has initiated and nephrology consultation which is pending. Additional recommendations be forthcoming based on his clinical course as it unfolds Supervising Physician Co-Signing Physician Notes Patient seen and examined, labs and imaging reviewed, agree with above. Admitted for acute kidney injury, during evaluation CT revealed distended gallbladder indicating possible cholecystitis. An ultrasound was performed and there was no cholelithiasis or evidence of cholecystitis. He denies any right upper quadrant pain. He has not had postprandial pain. On exam he is afebrile with stable vitals, abdomen soft, nontender, nondistended. CT and ultrasound personally reviewed and interpreted agree with the assessment of distended gallbladder but no evidence of cholecystitis or cholelithiasis. At this point there is no indication for cholecystectomy. Surgery standpoint he may have a diet as tolerated, if his symptoms recur would recommend HIDA scan to rule out acute cholecystitis. Surgical sign off, call with questions or concerns. History of Present Illness Reason for Consultation: Acute cholecystitis History of Present Illness This is a 64-year-old male who was referred to the emergency department by his outpatient physicians. The patient notes for approximate the past 6 days he felt feverish with some chills and has had a feeling of generalized fatigue. He also noted some decreased appetite. He does report 1 bout of emesis approximately 5 days ago but this has not recurred. He specifically denies any abdominal pain. He notes that his bowels are moving normally. Patient was seen by his outpatient physicians in the clinic where he was noted to be hypotensive. He was started on Augmentin for possible urinary tract infection. He was noted to have an elevated creatinine and therefore was instructed to report to the emergency department for further evaluation. General surgery was asked to see this patient secondary to concern for acute cholecystitis on CT scan that will be described below. I did question the patient about this and he denies any postprandial pain over the past weeks to months. He did have 1 episode of emesis several days ago as noted above. He has had abdominal surgery in the form of a left nephrectomy as well as a herniorrhaphy. He again specifically denies any abdominal pain. The patient does report that he has had a heart attack and he has had 3 strokes.. Concerning his heart attack he says he tries not to overly exert himself throughout the day but he does not get shortness of breath or have chest pain with his day-to-day activities. He says he has been approximately 6 months since his most recent cardiology visit. He does note concerning his stroke he had some speech impairment and some extremity weakness but he notes that he has made nearly a full recovery with the exception of some slurred speech. He notes that he is able to ambulate without the use of any assistive devices and has not had any recent head injuries or falls. Since arrival to the hospital this patient has had labs and imaging which I independently reviewed. Chest x-ray showed no evidence of pneumonia. A CT scan of the abdomen pelvis showed the patient had a thickened gallbladder wall with some pericholecystic inflammatory changes felt to be consistent with acute cholecystitis. The patient's colon was fluid-filled and nondistended felt to likely represent a diarrheal illness. He was noted to have multiple right renal hypodense lesions noted. Labs included CBC were white blood cell count was elevated 15.9. Hemoglobin and hematocrit 13.1 39.0. Platelet count was normal. Chemistry profile showed sodium and potassium are 134 and 3.8. His BUN and creatinine were 64 and 4.2. (Records show baseline creatinine typically runs around 1.8) coagulation studies showed an INR of 1.0. His LFTs showed a normal bilirubin level but his AST and ALT were both slightly elevated at 48 and 72. His alkaline phosphatase was also slightly elevated at 106. Urinalysis was negative for nitrites but did show trace leukocyte Estrace but there is no pyuria or bacteria noted. At the time of my interview he was resting comfortably in bed and he was no distress Allergies Allergy/AdvReac Type Severity Reaction Status Date / Time No Known Allergies Allergy Unknown Verified 03/13/24 17:12 Home Medications Medication Instructions Recorded Confirmed Type Nitroglycerin (Nitrostat) 0.4 mg sublingual UD PRN Chest 03/21/15 03/13/24 Rx Pain ##30 amoxicillin 875 mg-potassium 1 tab PO BID 03/13/24 03/13/24 History clavulanate 125 mg tablet apixaban 5 mg tablet (Eliquis) 5 mg PO BID 03/13/24 03/13/24 History aspirin 81 mg tablet,delayed 81 mg PO QAM 03/13/24 03/13/24 History release atorvastatin 40 mg tablet 40 mg PO PM 03/13/24 03/13/24 History dulaglutide 0.75 mg/0.5 mL 0.75 mg subcut WK 03/13/24 03/13/24 History subcutaneous pen injector (Trulicity) hydrochlorothiazide 25 mg tablet 25 mg PO QAM 03/13/24 03/13/24 History lisinopril 40 mg tablet 40 mg PO DAILY 03/13/24 03/13/24 History metformin 500 mg tablet,extended 500 mg PO BID 03/13/24 03/13/24 History release 24 hr metoprolol succinate 50 mg 75 mg PO BID 03/13/24 03/13/24 History tablet,extended release 24 hr Patient History Medical History High cholesterol Surgical History H/O heart surgery H/O hernia repair (09/30/12) H/O kidney removal (09/30/12) Family History Family/Other Hypertension Heart disease Social History Smoking Status: Current every day smoker Tobacco Type: Cigarettes Cigarettes Per Day: 1/3 PPD; Second Hand Exposure: No; Do You Dip or Chew Tobacco: No; Tobacco Cessation Education Requested by Patient: Yes Hx Alcohol Use: Yes Alcohol type: beer Hx Substance Use: Yes Last Used Substance Other:: 12 years ago Preferred Language: Kazakh Communication Ability: Effective Communication Ability Comment: expressive aphasia Adjunct Professor Required: No Beliefs That Will Affect Care: None marital status: Current Living Situation: Alone current occupational status: employed 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 Other Information That Helps Us Care for You: No Feels Safe at Home: Yes Safety Concerns: Feels Safe At This Time Assistive Devices: None Assistive Devices Comment: daughter will bring in glasses Review of Systems Review of Systems: All systems reviewed & are unremarkable except as noted in HPI & below Physical Exam Constitutional: WD/WN, vitals as above Eyes: + anicteric sclerae ENMT: Ears: no hearing impairment and no external ear abnormality Mouth: no oropharynx abnormality Neck: trachea midline Respiratory: normal respiratory effort; no respiratory distress and no labored breathing Cardiovascular: Rate/Rhythm: regular rate and regular rhythm Gastrointestinal (Abdomen): Abdomen is soft and nondistended. It is nonrigid. The patient has no pain with palpation, specifically no pain in the right upper quadrant with palpation. There is no rebound tenderness or guarding Musculoskeletal: No calf tenderness. Feet are warm and well-perfused Skin: no jaundice Neurologic: Patient is able move all 4 extremities and follows simple commands without any noted focal deficits. He does have some slight slurring of his speech. Psychiatric: A+Ox3, euthymic affect Results & Data Vital Signs (Past 12 Hours) Vital Signs Temp Pulse Pulse Resp BP BP Pulse Ox 03/13/24 19:00 81 18 117/72 98 03/13/24 17:19 84 03/13/24 16:55 86 24 112/91 98 03/13/24 14:13 36.3 C L 95 H 20 103/71 96 O2 Del Method 03/13/24 19:00 Room Air 03/13/24 17:19 03/13/24 16:55 Room Air 03/13/24 14:13 Room Air PG Care Time/CCT Total # of Minutes Spent Total Time Spent with Patient: Total time spent is greater than 50% in coordination of care (as documented) at patient's floor/unit and/or counseling patient: Coding Level of Care Code 10143 IN/OBS CONSULT LVL 5,80M Diagnoses Cholecystitis K81.9
--- NOTE | 2024-03-13 21:45 | Ultrasound Report ---
Exam(s): US GALLBLADDER EXAM: US Abdomen Limited, Gallbladder CLINICAL HISTORY: Reason for exam: cholecystitis. TECHNIQUE: Real-time ultrasound of the right upper quadrant with image documentation. COMPARISON: No relevant prior studies available. FINDINGS: Liver: Fatty liver. Gallbladder: Unremarkable. No gallstones. Common bile duct: CBD caliber measuring 3.1 mm in diameter. No stones. No dilation. Pancreas: Unremarkable as visualized. Right kidney: There is mild right-sided hydronephrosis. 3.4 cm cyst seen at the upper pole of the right kidney. 2.6 cm cyst seen in the mid pole region of the right kidney.. 1 cm cyst seen in the mid region of the right kidney. IMPRESSION: No evidence of cholecystitis or cholelithiasis Mild right hydronephrosis Electronically signed by: Greg Ríos MD 03/13/24 21:44 PM
[2024-03-13] MEDS ORDERED: CARBOHYDRATES FOR HYPOGLYCEMIA PO PRN (22:07)
[2024-03-13] MEDS ORDERED: GLUCOSE 10 TAB/TUBE PO PRN (22:07)
[2024-03-13] MEDS ORDERED: GLUCOSE 40% GEL 15 GM TUBE PO PRN (22:07)
[2024-03-13] MEDS ORDERED: DEXTROSE 50% 50 ML SYRINGE IV PRN (22:07)
[2024-03-13] MEDS ORDERED: GLUCAGON FOR INJ 1 MG VIAL SQ PRN (22:07)
[2024-03-13] MEDS ORDERED: ACETAMINOPHEN 1,000 MG/100 ML VIAL IV PRN (22:07)
[2024-03-13] MEDS ORDERED: PROMETHAZINE 6.25 MG/50.25 ML BAG IV PRN (22:07)
[2024-03-13] MEDS: ATORVASTATIN 40 MG TAB PO SCH (23:41)
[2024-03-13] MEDS: METOPROLOL SUCC 25MG EXT REL TAB PO SCH (23:41)
[2024-03-13] MEDS: NICOTINE 14 MG/24 HR PATCH TD SCH (23:42)
[2024-03-13] MEDS: PIPERACILLIN/TAZOBACTAM 4.5 GM/100 ML BAG IV SCH (23:42)
[2024-03-13] MEDS: INSULIN ASPART PER UNIT CHARGE SC SCH (23:44)
--- OUTSIDE RECORDS SUMMARY | 2024-03-14 05:32 | External Medical Summary ---
Author Name Unknown Address Unknown Organization [id number]:[facility] - [address] [place] [id number] Laboratory Report Ordering Provider Test Date Status MIGNON BAUMANN 03/12/2024 16:52:11 Final Observation Date Value Abnormality Reference (Units ) Status WBC, Total 03/12/2024 16:52:11 21.20 Above high normal 4.00-10.80 (K/uL) Final RBC 03/12/2024 16:52:11 4.61 4.50-5.25 (M/uL) Final Hemoglobin 03/12/2024 16:52:11 13.5 Below low normal 14.0-16.8 (g/dL) Final HCT 03/12/2024 16:52:11 41.5 40.0-48.4 (%) Final MCV 03/12/2024 16:52:11 90.0 82.0-99.5 (fL) Final MCH 03/12/2024 16:52:11 29.3 27.0-34.0 (pg) Final MCHC 03/12/2024 16:52:11 32.5 32.0-36.0 (g/dL) Final RDW 03/12/2024 16:52:11 13.5 11.5-15.5 (%) Final Platelets 03/12/2024 16:52:11 332 140-400 (K/uL) Final MPV 03/12/2024 16:52:11 10.7 6.6-11.1 (fL) Final Nucleated erythrocytes/100 leukocytes [Ratio] in Blood by Automated count 03/12/2024 16:52:11 0 <=0 (/100 WBCs) Final Performing Location [facility] - [address] [place] [id number]
--- OUTSIDE RECORDS SUMMARY | 2024-03-14 05:32 | External Medical Summary | Summary of Care ---
Author Name Unknown Organization [facility] Address [address] [place] [address] Phone [phone] Care Team Providers Care Professor Of Business Name Role Phone Marty Saul MD Primary Care Provider + Reason for Visit * Reason Onset Date Comments Test Results 10/24/2023 Encounter Details Date Type Department Care Team (Late st Contact Info) Description 10/24/2023 Telephone Cardiology, [facility] [address] [place] [address] Natalee Huddleston CRNP [address] [place] [id number] Test Results Allergies No known active allergiesdocumented as of this encounter (statuses as of 10/24/2023) Medications Medication Sig Dispensed Refills Start Date End Date Status Aspirin 81 MG TBEC Take by mouth. One tab daily 0 Active buPROPion HCl ER (SR) 150 MG Oral Tablet Extended Release 12 Hour (Wellbutrin SR)Indications:Tobac co use disorder TAKE ONE TABLET BY MOUTH DAILY 90 Tablet 3 05/17/2023 Active metFORMIN HCl ER 500 MG Oral Tablet Extended Release 24 Hour (Glucophage XR) TAKE 2 TABLETS BY MOUTH DAILY. 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 90 Tablet 2 05/30/2023 05/29/2024 Active Lisinopril 40 MG Oral TabletIndications:HT N, goal below 130/80 TAKE ONE TABLET BY MOUTH IN THE MORNING 90 Tablet 1 06/19/2023 Active Apixaban 5 MG Oral Tablet (Eliquis) Take 1 Tablet by mouth in the morning and 1 Tablet before bedtime. 200 Tablet 3 08/01/2023 Active Trulicity 0.75 MG/0.5ML Subcutaneous Solution Pen-injector (Dulaglutide) INJECT 0.5ML ( 0.75MG) ONCE A WEEK UNDER THE SKIN. 2 mL 5 08/25/2023 08/24/2024 Active Metoprolol Succinate ER 50 MG Oral Tablet Extended Release 24 Hour (toPROL XL)Indications:HTN, goal below 130/80,Typical atrial flutter (HCC) Take 1.5 Tablets by mouth in the morning and 1.5 Tablets before bedtime. 270 Tablet 3 09/26/2023 Active documented as of this encounter (statuses as of 10/24/2023) Active Problems Problem Noted Date Diagnosed Date Typical atrial flutter 09/29/2022 Chronic low back pain without sciatica 2 Acquired complex renal cyst 01/07/2021 Type 2 diabetes mellitus wit h stage 3b chronic kidney disease 11/24/2020 Overview: Per CKD protocol MDD (major depressive disorder), recurrent episo de, mild 10/05/2020 Stage 3b chronic kidney disease 05/25/2020 Overview: Per CKD protocol Left leg weakness 09/06/2019 Overview: S/p CVA Type 2 diabetes mellitus with chronic kidney dis ease 03/06/2019 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 04/07 +FOB. Colon ordered. 07/06 uro onc monitoring renal lesion yearly scan 09/05 start metformin a1c >8.0 10/02 colon ok rony 3y. 09/02 change from atorvastatin /chlorthlidone to simvastatin/HCTZ due to uninsured 04/01 6.5 09/29 a1c 6.3--rony 6-12mo 09/01 colonoscopy--3&6mm polyps path Tubular adenoma. Rony 3 y due to suboptimal prep Old myocardial infarct 04/24/2015 S/p nephrectomy 04/24/2015 Atrial flutter 04/10/2015 Overview: New dx / CVA ICD-10 update of inactive term HTN, goal below 130/80 04/10/2015 History of cardioembolic stroke 04/01/2015 Hx of nonmelanoma skin cancer 04/09/2008 Overview: Hx BCC L neck 2007, curetted (Lucia), BCC forehead near frontal hairline 12/2019 documented as of this encounter (statuses as of 10/24/2023) Resolved Problems Problem Noted Date Diagnosed Date Resolved Date Diabetes mellitus with stage 3 chronic kidney disease 10/26/2020 11/26/2020 Overview: Per CKD protocol Type 2 diabetes mellitus wit h stage 3 chronic kidney disease, without long-term current use of insulin 10/05/2020 10/29/2020 Overview: Per CKD protocol Hyperparathyroidism 04/09/2018 10/06/19 Overview: 04/03 elevated PTH, recheck 3-6mo Kidney disease, chronic, sta ge III (GFR 30-59 ml/min) 04/25/2016 05/28/2020 Overview: Per CKD protocol #1 Prediabetes 09/18/2015 09/07/2019 CAD (coronary artery disease) 04/24/2015 09/03/2018 Renal cancer 04/24/2015 04/04/2017 Overview: S/p left nephrectomy 2007 UNILAT INGUINAL HERNIA 04/15/200409/03 documented as of this encounter (statuses as of 10/24/2023) Immunizations Name Administration Dates Next Due COVID-19 mRNA, LNP-s, No Pre serve, 2-Dose Series (Plan Me Up) 10/05/2020,09/14/2020 Covid-19, Mrna, Lnp-s, Pf, B ivalent, 30 Mcg, IM, 12 yrs and above (Pfizer) 04/08/2022 Hepatitis B, 20+ yrs 09/29/2022,01/07/2021,04/06 Pneumococcal Conjugate Vacci ne, 20-valent ([id number]) 04/01/2022 Pneumococcal Polysaccharide PPV23 (Pneumovax) 03/24/2016 Seasonal Influenza, PF, 6 M & above, IM , (FluLaval or Fluzone) 07/25/2023,04/01/2022,03/26/2021,04/06,09/06/2019,04/05/2018 Seasonal Influenza, Quadriva lent, No Preserve, IM 04/04/2017,03/24/2016,06/09/2015 TDAP (age 10 and older)(Boostrix) 09/09/2015 Zoster Vaccine Recombinant (Shingrix) 01/07/2021 ,04/06/2020 documented as of this encounter Social History Tobacco Use Types Packs/Day Years Used Date Smoking Tobacco: Former Cigarettes 0.3 20 0 03/18/2003 - 03/18/2023 Smokeless Tobacco: Never Comments:3-4 cigarettes per day Alcohol Use Standard Drinks/Week Comments Yes 0 (1 standard drink = 0.6 oz pur e alcohol) occasional beer PHQ-2 Answer Date Recorded PHQ Adult Total Score 6 04/01/2022 Hunger Vital Sign Answer Date Recorded Within the past 12 months, y ou worried that your food would run out before you got the money to buy more. Never true 09/30/19 23 Within the past 12 months, t he food you bought just didn't last and you didn't have money to get more. Never true 09/29/2022 Sex and Gender Information Value Date Recorded Sex Assigned at Male 09/06/2019 8:44 AM EST Gender Identity Male 09/06/2019 8:44 AM EST Sexual Orientation Straight 04/01/2022 8: 50 AM EDT Job Start Date Occupation Industry Not on file Not on file Not on file documented as of this encounter Miscellaneous Notes * Telephone Encounter - Oberteuffer, Cori, SECURITY SCREENER - 10/24/2023 11:54 AM EDT Letter mailed. * Telephone Encounter - Mary Hernández CMA - 10/24/2023 11:53 AM EDT ----- Message from KALYN Bailey sent at 10/24/2023 9:22 AM EDT ----- Echocardiogram showed a normal LVEF 60-64%. Prior wall motion abnormality in the posterior wall notappreciated on current study, good! No significant valvular disease. Aortic root measured at 4.4 cmand ascending aorta measuring 4.1. Overall diameter of the aorta is unchanged. No changes need madeat this time. documented in this encounter Plan of Treatment Upcoming Encounters Date Type Department Care Team (Late st Contact Info) Description 03/19/2024 8:20 AM EDT Office Visit [facility] [address] [place] [address] Janet Howard PA-C [address], [place] [id number] Scheduled Procedures Name Priority Associated Diagnoses Date/Ti me COLONOSCOPY FLEXIBLE PROXIMAL DIAGNOSTIC Recall History of colon polyps Health Maintenance Due Date Last Done Comments Diabetic Eye Exam 10/07/2022 10/07/2021, , 09/06/2019 COVID-19 Vaccine ( season) 2023 04/08/2022, 10/05/2020, 09/14/2020 GFR 09/14/2023 03/16/2023, 03/17, 03/10/2021, Additional history exists Diabetic Foot Exam 09/30/2023 09/29/2022, 0 10/05/2020, 03/12/2019 HbA1c 11/04/2023 05/05/2023, 0807/2022, 04/01/2022, Additional history exists B-12 03/16/2024 03/16/2023, 03/17, 04/06/2020 CKD HGB USE SMARTSET 24797 03/16/2024 03/16/2023, CKD PHOS USE SMARTSET 39515 03/16/2024 03/16/2023, 0 04/07/2018 Albumin/Creatinine Ratio 06/01/2024 023, 07/04/2022, 04/02/2022, Additional history exists DTaP,Tdap,and Td Vaccines (2 - Td or Tdap) 09/09/2025 09/09/2015 COLONOSCOPY-EVERY 5 YRS AGES 18-100 09/21/2027 09/20/2022, 09/20/2022, 07/06/2022, Additional history exists Zoster Vaccines Completed 01/07/2021, 04/06/2020 Pneumococcal Vaccine: Pediatrics (0 to 5 Years) and At-Risk Patients (6 to 64 Years) Completed 04/01/2022, 03/24/2016 COLONOSCOPY-EVERY 3 YRS AGES 18-100 Discontinued 09/20/2022, 09/20/2022, 07/06/2022, Additional history exists Hepatitis B Completed 09/29/2022, 12/16, 04/06/2020 Influenza Vaccine (FLU shot) Completed 07/25/2023, 04/01/2022, 03/26/2021, Additional history exists GARDASIL-HPV IMMUNIZATION SERIES Aged Out No longer eligible based on patient's age to complete this topic MENINGOCOCCAL (MENACTRA/MENVEO) Aged Out No longer eligible based on patient's age to complete this topic documented as of this encounter Medical Devices Not on filedocumented as of this encounter Care Teams Professor Of Business Relationship Specialty Start Date End Date Marty Saul MD [address] [place] [id number] PCP - General Family Medicine 04/26/15 documented as of this encounter
--- OUTSIDE RECORDS SUMMARY | 2024-03-14 05:32 | External Medical Summary ---
Author Name Unknown Address Unknown Organization [id number]:[facility] [address] - [address] [place] [id number] Laboratory Report Ordering Provider Test Date Status MIGNON BAUMANN 03/12/2024 16:27:00 Final Observation Date Value Abnormality Reference (Units ) Status Color of Urine by Auto 03/12/2024 16:27:00 Mell Abnormal Light Yellow, Yellow Final Clarity, Urine 03/12/2024 16:27:00 Slightly Cloudy Abnormal Clear Final Glucose [Mass/volume] in Urine by Automated test strip 03/12/2024 16:27:00 100 Abnormal Negative (mg/dL) Final Bilirubin.total [Presence] in Urine by Automated test strip 03/12/2024 16:27:00 Moderate Abnormal Negative Final Ketones [Mass/volume] in Urine by Automated test strip 03/12/2024 16:27:00 15 Abnormal Negative (mg/dL) Final Specific gravity, Urine 03/12/2024 16:27:00 >=1.030 1.003-1.030 Final Hemoglobin [Presence] in Urine by Automated test strip 03/12/2024 16:27:00 Trace-lysed Abnormal Negative Final pH, Urine 03/12/2024 16:27:00 5.0 5.0, 5.5, 6.0, 6.5, 7.0, 7.5 (units) Final Protein [Mass/volume] in Urine by Automated test strip 03/12/2024 16:27:00 30 Abnormal Negative (mg/dL) Final Urobilinogen, Urine 03/12/2024 16:27:00 4.0 Abnormal 0.2, 1.0 (mg/dL) Final Nitrite [Presence] in Urine by Automated test strip 03/12/2024 16:27:00 Negative Negative Final Leukocyte esterase [Presence] in Urine by Automated test strip 03/12/2024 16:27:00 Trace Abnormal Negative Final Performing Location [facility] [address] [place] [id number]
--- OUTSIDE RECORDS SUMMARY | 2024-03-14 05:32 | External Medical Summary | Summary of Care ---
Author Name Unknown Organization [facility] Address [address] [place] [address] Phone [phone] Care Team Providers Care Bessemer Bottom Maker Name Role Phone Marty Saul MD Primary Care Provider + Encounter Details Date Type Department Care Team (Late st Contact Info) Description 10/10/2023 Orders Only Outcomes Research Department [address], [place] [id number] Therese Aguilar CHRA [employer] Research Other*[id number] Allergies No known active allergiesdocumented as of this encounter (statuses as of 10/10/2023) Medications Medication Sig Dispensed Refills Start Date [...] Oral Tablet (Lipitor)Indications :Coronary artery disease involving [place] coronary artery of [place] heart with angina pectoris (HCC) TAKE 1 [...] as of this encounter (statuses as of 10/10/2023) Active Problems Problem Noted Date Diagnosed Date [...] ease 03/06/2019 Coronary artery disease invo lving [place] coronary artery of [place] heart with angina pectoris 09/03/2018 History of renal carcinoma 04/04/2017 Well adult exam 09/15/2015 Overview: 10/06 colon WNL rony 5y. 04/07 +FOB. Colon ordered. 07/06 uro onc monitoring renal lesion yearly scan 09/05 start metformin a1c >8.0 10/02 colon ok rony 3y. 09/02 change from atorvastatin /chlorthlidone to simvastatin/HCTZ due to uninsured 04/01 6.5 09/29 a1c 6.3--rony 6-12mo 2/16 colonoscopy--3&6mm polyps path Tubular adenoma. Rony 3 y due to suboptimal prep Old myocardial infarct 04/24/2015 S/p nephrectomy 04/24/2015 Atrial flutter 04/10/2015 Overview: New dx w/3rd CVA ICD-10 update of inactive term HTN, goal below 130/80 04/10/2015 History of cardioembolic stroke 04/01/2015 Hx of nonmelanoma skin cancer 04/09/2008 Overview: Hx BCC L neck 2007, curetted (Lucia), BCC forehead near frontal hairline 12/2019 documented as of this encounter (statuses as of 10/10/2023) Resolved Problems Problem Noted Date Diagnosed Date Resolved Date Diabetes mellitus with stage 3 chronic kidney disease 10/26/2020 11/26/2020 Overview: Per CKD protocol Type 2 diabetes mellitus wit h stage 3 chronic kidney disease, without long-term current use of insulin 10/05/2020 10/29/2020 Overview: Per CKD protocol Hyperparathyroidism 04/09/2018 10/06/19 21 Overview: 04/03 elevated PTH, recheck 3-6mo Kidney disease, chronic, sta ge III (GFR 30-59 ml/min) 04/25/2016 05/28/2020 Overview: Per CKD protocol #1 Prediabetes 09/18/2015 09/07/2019 CAD (coronary artery disease) 04/24/2015 09/03/2018 Renal cancer 04/24/2015 04/04/2017 Overview: S/p left nephrectomy 2007 UNILAT INGUINAL HERNIA 04/15/200409/03 documented as of this encounter (statuses as of 10/10/2023) Immunizations Name Administration Dates Next Due COVID-19 mRNA, LNP-s, No Pre serve, 2-Dose Series ([employer]) 10/05/2020,09/14/2020 Covid-19, Mrna, Lnp-s, Pf, B ivalent, 30 Mcg, IM, 12 yrs and above (Pfizer) 04/08/2022 Hepatitis B, 20+ yrs 09/29/2022,01/07/2021,04/06 Pneumococcal Conjugate Vacci ne, 20-valent ([id number]) 04/01/2022 Pneumococcal Polysaccharide PPV23 (Pneumovax) 03/24/2016 Seasonal [...] on file documented as of this encounter Plan of Treatment Upcoming Encounters Date Type Department Care Team (Late st Contact Info) Description 10/24/2023 7:15 AM EDT Cardiac Studies Cardiac Studies, [address] [place] [address] 03/19/2024 8:20 AM EDT Office Visit [facility] [address] [place] [phone] Janet Howard PA-C [address] [place] [address] Scheduled Orders Name Type Priority Associated Diagnoses Orde r Schedule MYCODE SUBSEQUENT ADULT Lab Routine [employer] Research Other*[id number] Every 6 Months for 2 Occurrences starting 10/10/2023 until 10/29/2024 Scheduled Procedures Name Priority Associated Diagnoses Date/Ti me COLONOSCOPY FLEXIBLE PROXIMAL DIAGNOSTIC Recall History of colon polyps Health Maintenance Due Date Last Done Comments Diabetic Eye Exam 10/07/2022 10/07/2021, , 09/06/2019 COVID-19 Vaccine ( season) 2023 04/08/2022, 10/05/2020, 09/14/2020 Depression Screening 04/01/2023 04/01/2022 GFR 09/14/2023 03/16/2023, 03/17, 03/10/2021, Additional history exists Diabetic Foot Exam 09/30/2023 09/29/2022, 0 10/05/2020, 03/12/2019 HbA1c 11/04/2023 05/05/2023, 02/16, 04/01/2022, Additional history exists B-12 03/16/2024 03/16/2023, 03/17, 04/06/2020 CKD HGB USE SMARTSET 67592 03/16/2024 03/16/2023, CKD PHOS USE SMARTSET 44741 03/16/2024 03/16/2023, 0 04/07/2018 Albumin/Creatinine Ratio 06/01/202406/01/2 023, 07/04/2022, 04/02/2022, Additional history exists DTaP,Tdap,and [...] Not on filedocumented as of this encounter Visit Diagnoses Diagnosis [employer] [facility] Other*[id number] documented in this encounter Care Teams Bessemer Bottom Maker Relationship Specialty Start Date End Date Marty Saul MD [address] [place] [address] PCP - General Family Medicine 04/26/15 documented as of this encounter
--- OUTSIDE RECORDS SUMMARY | 2024-03-14 05:32 | External Medical Summary ---
Author Name Unknown Address Unknown Organization K01:[facility] - [address] [place] [address] [place] [address] Laboratory Report Ordering Provider Test Date Status IBISMIGNON 03/12/2024 16:52:11 Final Less than 0.5 ng/mL: Low ris k for progression to sepsis. Review patients condition for localized infections.

0.5 to 2.0 ng/mL: Intermediate risk for progresion to sepsis. Review underlying conditions. Recommend repeat PCT after 6 hours has elapsed.

Greater than 2.0 ng/mL: high risk for progression to sepsis unless other causes are known. Observation Date Value Abnormality Reference (Units ) Status Procalcitonin [Mass/volume] in Serum or Plasma by Immunoassay 03/12/2024 16:52:11 1.98 Above high normal <0.10 (ng/mL) Final Performing Location [facility] - [facility] [address] [place] [address]
--- OUTSIDE RECORDS SUMMARY | 2024-03-14 05:32 | External Medical Summary | Summary of Care ---
Author Name Unknown Organization [facility] Address [address] [place] [address] Phone [phone] Care Team Providers Care Bobbin Inspector Name Role Phone Marty Saul MD Primary Care Provider + Reason for Visit * Reason Comments Outpatient Testing Encounter Details Date Type Department Care Team (Late st Contact Info) Description 03/12/2024 4:40 PM EDT Laboratory Laboratory, [facility] [address] [facility] [place] [address] [facility] [address] [place] [address] Urinary tract infection without hematuria, site unspecified Allergies No known active allergiesdocumented as of this encounter (statuses as of 03/12/2024) Medications Medication Sig Dispensed Refills Start Date End Date Status Aspirin 81 MG TBEC Take by mouth. One tab daily Active buPROPion HCl ER (SR) 150 MG Oral Tablet Extended Release 12 Hour (Wellbutrin SR)Indications:Tobac co use disorder TAKE ONE TABLET BY MOUTH DAILY 90 Tablet 3 05/17/2023 Active Apixaban 5 MG Oral Tablet (Eliquis) Take 1 Tablet by mouth in the morning and 1 Tablet before bedtime. 200 Tablet 3 08/01/2023 Active Metoprolol Succinate ER 50 MG Oral Tablet Extended Release 24 Hour (toPROL XL)Indications:HTN, goal below 130/80,Typical atrial flutter (HCC) Take 1.5 Tablets by mouth in the morning and 1.5 Tablets before bedtime. 270 Tablet 3 09/26/2023 Active Lisinopril 40 MG Oral TabletIndications:HT N, goal below 130/80 TAKE ONE TABLET BY MOUTH IN THE MORNING 90 Tablet 1 12/20/2023 Active Trulicity 0.75 MG/0.5ML Subcutaneous Solution Pen-injector (Dulaglutide) INJECT 0.5ML ( 0.75MG) ONCE A WEEK UNDER THE SKIN. 2 mL 1 02/16/2024 Active metFORMIN HCl ER 500 MG Oral Tablet Extended Release 24 Hour (Glucophage XR) TAKE 2 TABLETS BY MOUTH DAILY. 60 Tablet 02/20/2024 02/19/2025 Active hydroCHLOROthiazide 25 MG Oral Tablet (Hydrodiuril)Indicat ions:HTN, goal below 130/80 TAKE ONE TABLET BY MOUTH IN THE MORNING 90 Tablet 02/28/2024 02/27/2025 Active Atorvastatin Calcium 40 MG Oral Tablet (Lipitor)Indications :Coronary artery disease involving [place] coronary artery of [place] heart with angina pectoris (HCC) TAKE 1 TABLET BY MOUTH DAILY. 90 Tablet 02/28/2024 02/27/2025 Active documented as of this encounter (statuses as of 03/12/2024) Active Problems Problem Noted Date Diagnosed Date [...] ease 03/06/2019 Coronary artery disease invo lving [place] coronary artery of [place] heart with angina pectoris 09/03/2018 History of [...] as of this encounter (statuses as of 03/12/2024) Resolved Problems Problem Noted Date Diagnosed Date [...] as of this encounter (statuses as of 03/12/2024) Immunizations Name Administration Dates Next Due COVID-19 mRNA, LNP-s, No Pre serve, 2-Dose Series ([employer]) 10/05/2020,09/14/2020 Covid-19, Mrna, Lnp-s, Pf, B ivalent, 30 Mcg, IM, 12 yrs and above (Pfizer) 04/08/2022 Hepatitis B, 20+ yrs 09/29/2022,01/07/2021,04/06 Pneumococcal Conjugate Vacci ne, 20-valent ([id number]) 04/01/2022 Pneumococcal Polysaccharide PPV23 (Pneumovax) 03/24/2016 Seasonal Influenza, PF, 6 M & above, IM , (FluLaval or Fluzone) 07/25/2023,04/01/2022,03/26/2021,04/06,09/06/2019,04/05/2018 Seasonal Influenza, Quadriva lent, No Preserve, IM 04/04/2017,03/24/2016,06/09/2015 TDAP (age 10 and older)(Boostrix) 09/09/2015 Zoster Vaccine Recombinant (Shingrix) 01/07/2021 ,04/06/2020 documented as of this encounter Social History Tobacco Use Types Packs/Day Years Used Date Smoking Tobacco: Some Days Cigarettes 0.3 20 Started: 03/18/2003; Last attempted to quit: 03/18/2023 Smokeless Tobacco: Never Comments:3-4 cigarettes per [...] money to get more. Never true 09/29/2022 Utilities Answer Date Recorded Do you have trouble paying y our heating, water, or electric bill? (Adult - for ages 18 years and over) Not on file 01/02/2024 Is your family able to pay t he heat, water, or electric bill? (Household - for ages 0-17 years) Not on file 01/02/2024 Does your family have access to good internet? (Household - for ages 0-17 years) Not on file 01/02/2024 Social Connections Answer Date Recorded How often do you feel lonely or isolated from those around you? (Adult - for ages 18 years and over) Not on file 01/02/2024 Sex and Gender Information Value Date Recorded [...] Description 03/19/2024 8:20 AM EDT Office Visit [facility] [address] [place] [phone] Janet Howard PA-C [address] [place] [address] Pending Results Name Type Priority Associated Diagnoses Date /Time CBC WITH WBC DIFFERENTIAL Lab Routine Urinary tract infection without hematuria, site unspecified 03/12/2024 4:52 PM EDT COMPREHENSIVE METABOLIC PANEL Lab Routine Urinary tract infection without hematuria, site unspecified 03/12/2024 4:52 PM EDT PROCALCITONIN Lab Routine Urinary tract infection without hematuria, site unspecified 03/12/2024 4:52 PM EDT CBC Lab Routine Urinary tract infection without hematuria, site unspecified 03/12/2024 4:52 PM EDT DIFFERENTIAL, AUTOMATED Lab Routine Urinary tract infection without hematuria, site unspecified 03/12/2024 4:52 PM EDT Scheduled Procedures Name Priority Associated Diagnoses Date/Ti me COLONOSCOPY FLEXIBLE PROXIMAL DIAGNOSTIC Recall History of colon polyps Health Maintenance Due Date Last Done Comments DISCUSS TOBACCO CESSATION (REFER TO SMARTSET #6364) 1961 Cologuard 2006 Sigmoidoscopy 2006 Diabetic Eye Exam 10/07/2022 10/07/2021, , 09/06/2019 COVID-19 Vaccine ( season) 2023 04/08/2022, 10/05/2020, 09/14/2020 Depression Monitoring 04/01/2023 04/01/2022 Fecal Occult Blood Test 04/04/2023 04/04/2022 GFR 09/14/2023 03/16/2023, 03/17, 03/10/2021, Additional history exists Diabetic Foot Exam 09/30/2023 09/29/2022, 0 10/05/2020, 03/12/2019 HbA1c 11/04/2023 05/05/2023, 02/16, 04/01/2022, Additional history exists B-12 03/16/2024 03/16/2023, 03/17, 04/06/2020 CKD HGB USE SMARTSET 43108 03/16/2024 03/16/2023, CKD PHOS USE SMARTSET 17844 03/16/2024 03/16/2023, 0 04/07/2018 Influenza Vaccine (FLU shot) (#1) 2024 07/25/2023, 04/01/2022, 03/26/2021, Additional history exists Albumin/Creatinine Ratio 06/01/2024 023, 07/04/2022, 04/02/2022, Additional history exists DTap/Tdap Vaccines (2 - Td or Tdap) 09/09/2025 09/09/2015 Colonoscopy 09/21/2027 09/20/2022, 0301/2023, 07/06/2022, Additional history exists Colorectal Cancer Screening 09/21/2027 Zoster Vaccines Completed 01/07/2021, 04/06/2020 Pneumococcal Vaccine: Pediatrics (0 to 5 Years) and At-Risk Patients (6 to 64 Years) Completed 04/01/2022, 03/24/2016 RETIRED - COLONOSCOPY-EVERY 5 YRS AGES 18-100 Discontinued 09/20/2022, 09/20/2022, 07/06/2022, Additional history exists Hepatitis B Vaccine Completed 09/29/2022, 01/07/2021, 04/06/2020 HPV (Gardasil) Vaccine Aged Out No lo nger eligible based on patient's age to complete this topic MENINGOCOCCAL (MENACTRA/MENVEO) Aged Out No longer eligible based on patient's age to complete this topic documented as of this encounter Medical Devices Not on filedocumented as of this encounter Visit Diagnoses Diagnosis Urinary tract infection without hematuria, site unspecified documented in this encounter Care Teams Bobbin Inspector Relationship Specialty Start Date End Date Marty Saul MD [address] [place] [address] PCP - General Family Medicine 04/26/15 documented as of this encounter
--- OUTSIDE RECORDS SUMMARY | 2024-03-14 05:32 | External Medical Summary | Summary of Care ---
Author Name Unknown Organization [facility] Address [address] [place] [address] Phone [phone] Care Team Providers Care Space Controller Name Role Phone Marty Saul MD Primary Care Provider + Reason for Visit * Reason Onset Date Comments Appointment 03/11/2024 Encounter Details Date Type Department Care Team (Late st Contact Info) Description 03/11/2024 Telephone Family Practice [facility] [address] [place] [address] Marty Saul MD [address] [place] [address] Appointment Allergies No known active allergiesdocumented as of [...] Oral Tablet (Lipitor)Indications :Coronary artery disease involving [place] coronary artery of [place] heart with angina pectoris (HCC) TAKE 1 [...] ease 03/06/2019 Coronary artery disease invo lving [place] coronary artery of [place] heart with angina pectoris 09/03/2018 History of [...] 04/24/2015 Atrial flutter 04/10/2015 Overview: New dx w/ CVA ICD-10 update of inactive term HTN, [...] mRNA, LNP-s, No Pre serve, 2-Dose Series ([employer]) 10/05/2020,09/14/2020 Covid-19, Mrna, Lnp-s, Pf, B ivalent, 30 Mcg, IM, 12 yrs and above (Pfizer) 04/08/2022 Hepatitis B, 20+ yrs 09/29/2022,01/07/2021,04/06 Pneumococcal Conjugate Vacci ne, 20-valent ([id number]) 04/01/2022 Pneumococcal Polysaccharide PPV23 (Pneumovax) 03/24/2016 Seasonal [...] encounter Miscellaneous Notes * Telephone Encounter - Vanessa Willis OSA - 03/12/2024 10:52 AM EDT Appt scheduled with daughter * Telephone Encounter - Manda Black OSA - 03/11/2024 3:23 PM EDT No Appointments Available Patient declined appointments?: No What Visit Type is needed? Acute If Acute Visit Type is needed, were surrounding clinics offered to patient (Yes/No)? N/A Was patient offered appointments with other available providers (Yes/No)? N/A See Call Details? (Yes or No): Hot/cold flashes, fatigue, and no appetite. documented in this encounter Plan of Treatment Upcoming Encounters Date Type Department Care Team (Late st Contact Info) Description 03/12/2024 3:40 PM EDT Office Visit [facility] [address] [place] [address] Renetta Anderson DO [address] [place] [address] 03/19/2024 8:20 AM EDT Office Visit [facility] [address] [phone] Janet Howard PA-C [address] [place] [address] Scheduled Procedures Name Priority Associated Diagnoses Date/Ti me COLONOSCOPY FLEXIBLE PROXIMAL DIAGNOSTIC Recall History of colon polyps Health Maintenance Due Date Last Done Comments Cologuard 2006 Sigmoidoscopy 2006 Diabetic Eye Exam 10/07/2022 10/07/2021, , 09/06/2019 COVID-19 Vaccine ( season) 2023 04/08/2022, 10/05/2020, 09/14/2020 Depression Monitoring 04/01/2023 04/01/2022 Fecal Occult Blood Test 04/04/2023 04/04/2022 GFR 09/14/2023 03/16/2023, 03/17, 03/10/2021, Additional history exists Diabetic Foot Exam 09/30/2023 09/29/2022, 0 10/05/2020, 03/12/2019 HbA1c 11/04/2023 05/05/2023, 02/16, 04/01/2022, Additional history exists B-12 03/16/2024 03/16/2023, 03/17, 04/06/2020 CKD HGB USE SMARTSET 35852 03/16/2024 03/16/2023, CKD PHOS USE SMARTSET 09084 03/16/2024 03/16/2023, 0 04/07/2018 Influenza Vaccine (FLU shot) (#1) 2024 07/25/2023, 04/01/2022, 03/26/2021, Additional history exists Albumin/Creatinine Ratio 06/01/202406/01/2 023, 07/04/2022, 04/02/2022, Additional history exists DTap/Tdap Vaccines (2 - Td or Tdap) 09/09/2025 09/09/2015 Colonoscopy 09/21/2027 09/20/2022, 03/0 01/2023, 07/06/2022, Additional history exists Colorectal Cancer Screening [...] filedocumented as of this encounter Care Teams Space Controller Relationship Specialty Start Date End Date Marty Saul MD [address] [place] [address] PCP - General Family Medicine 04/26/15 documented as of this encounter
--- OUTSIDE RECORDS SUMMARY | 2024-03-14 05:32 | External Medical Summary ---
Author Name Unknown Address Unknown Organization K01:[facility] [place] [address] [place] [address] Laboratory Report Ordering Provider Test Date Status MIGNON BAUMANN 03/12/2024 16:52:11 Final Observation Date Value Abnormality Reference (Units ) Status SYNC LEUKOCYTES IN BLOOD BY AUTOMATED COUNT 03/12/2024 16:52:11 21.20 Above high normal 4.00-10.80 (K/uL) Final Segs 03/12/2024 16:52:11 47.5 40.0-75.0 (%) Final Lymphs % 03/12/2024 16:52:11 45.3 Above high normal 18.0-42.0 (%) Final Monos 03/12/2024 16:52:11 5.8 1.0-11.0 (%) Final Eosinophils 03/12/2024 16:52:11 0.7 0.0-6.0 (%) Final Basos 03/12/2024 16:52:11 0.3 0.0-2.0 (%) Final Immature Granulocyte, Percent 03/12/2024 16:52:11 0.4 0.0-2.0 (%) Final Absolute Segs 03/12/2024 16:52:11 10.08 Above high normal 1.80-7.70 (K/uL) Final Lymphs, absolute 03/12/2024 16:52:11 9.60 Above high normal 1.00-4.80 (K/ul) Final Monos, Abs 03/12/2024 16:52:11 1.22 Above high normal 0.00-1.10 (K/uL) Final Eos, Abs 03/12/2024 16:52:11 0.14 0.00-0.70 (K/uL) Final Basos, Abs 03/12/2024 16:52:11 0.07 0.00-0.20 (K/uL) Final Immature Granulocytes, Number 03/12/2024 16:52:11 0.09 0.00-0.20 (K/uL) Final Performing Location [facility] [place] [facility] [address] [place] [address]
--- OUTSIDE RECORDS SUMMARY | 2024-03-14 05:32 | External Medical Summary | Summary of Care ---
Author Name Unknown Organization [facility] Address [address] [place] [address] Phone [phone] Care Team Providers Care Biology Instructor Name Role Phone Marty Saul MD Primary Care Provider + Reason for Visit * Reason Comments Medication Refill Encounter Details Date Type Department Care Team (Late st Contact Info) Description 02/18/2024 Refill Family Practice [facility] [address] [place] [address] Ellen Roe CRNP [address] [place] [address] Allergies No known active allergiesdocumented as of this encounter (statuses as of 02/20/2024) Medications Medication Sig Dispensed Refills Start Date End Date Status Aspirin 81 MG TBEC Take by mouth. One tab daily Active buPROPion HCl ER (SR) 150 MG Oral Tablet Extended Release 12 Hour (Wellbutrin SR)Indications:Tob acco use disorder TAKE ONE TABLET BY MOUTH DAILY 90 Tablet 3 05/17/2023 Active hydroCHLOROthiazid e 25 MG Oral Tablet (Hydrodiuril)Indic ations:HTN, goal below 130/80 TAKE ONE TABLET BY MOUTH IN THE MORNING 90 Tablet 2 05/30/2023 05/29/2024 Active Atorvastatin Calcium 40 MG Oral Tablet (Lipitor)Indicatio ns:Coronary artery disease involving [place] coronary artery of [place]aver heart with angina pectoris (HCC) TAKE 1 TABLET BY MOUTH DAILY. 90 Tablet 2 05/30/2023 05/29/2024 Active Apixaban 5 MG Oral Tablet (Eliquis) Take 1 Tablet by mouth in the morning and 1 Tablet before bedtime. 200 Tablet 3 08/01/2023 Active Metoprolol Succinate ER 50 MG Oral Tablet Extended Release 24 Hour (toPROL XL)Indications:HTN , goal below 130/80,Typical atrial flutter (HCC) Take 1.5 Tablets by mouth in the morning and 1.5 Tablets before bedtime. 270 Tablet 3 09/26/2023 Active Lisinopril 40 MG Oral TabletIndications: HTN, goal below 130/80 TAKE ONE TABLET BY MOUTH IN THE MORNING 90 Tablet 1 12/20/2023 Active Trulicity 0.75 MG/0.5ML Subcutaneous Solution Pen-injector (Dulaglutide) INJECT 0.5ML ( 0.75MG) ONCE A WEEK UNDER THE SKIN. 2 mL 1 02/16/2024 Active metFORMIN HCl ER 500 MG Oral Tablet Extended Release 24 Hour (Glucophage XR) TAKE 2 TABLETS BY MOUTH DAILY. 60 Tablet 02/20/2024 02/19/2025 Active metFORMIN HCl ER 500 MG Oral Tablet Extended Release 24 Hour (Glucophage XR) TAKE 2 TABLETS BY MOUTH DAILY. 180 Tablet 2 05/30/2023 02/18/2024 Discontinued (Refill) documented as of this encounter (statuses as of 02/20/2024) Active Problems Problem Noted Date Diagnosed Date [...] ease 03/06/2019 Coronary artery disease invo lving [place] coronary artery of beaver heart with angina pectoris 09/03/2018 History of [...] as of this encounter (statuses as of 02/20/2024) Resolved Problems Problem Noted Date Diagnosed Date [...] as of this encounter (statuses as of 02/20/2024) Immunizations Name Administration Dates Next Due COVID-19 mRNA, LNP-s, No Pre serve, 2-Dose Series ([employer]) 10/05/2020,09/14/2020 Covid-19, Mrna, Lnp-s, Pf, B ivalent, 30 Mcg, IM, 12 yrs and above (Pfizer) 04/08/2022 Hepatitis B, 20+ yrs 09/29/2022,01/07/2021,04/06 Pneumococcal Conjugate Vacci ne, 20-valent ([id number]) 04/01/2022 Pneumococcal Polysaccharide PPV23 (Pneumovax) 03/24/2016 Seasonal [...] encounter Miscellaneous Notes * Telephone Encounter - Mady Cook RPh - 02/20/2024 7:40 AM EDTSigned Prescriptions: Disp Refills metFORMIN HCl ER 500 MG Oral Tablet Extend*60 Tab*0 Sig: TAKE 2 TABLETS BY MOUTH DAILY. Authorizing Provider: ELLEN ROE Ordering User: MADY COOK * Telephone Encounter - Mady Cook RPh - 02/20/2024 7:37 AM EDT Authorizing 30 days until upcoming OV Patient will be notified of labs due in previous encounter. documented in this encounter Plan of Treatment Upcoming Encounters Date Type Department Care Team (Late st Contact Info) Description 03/19/2024 8:20 AM EDT Office Visit [address] [place] [phone] Janet Howard PA-C [address] [place] [address] Scheduled Procedures Name Priority Associated Diagnoses Date/Ti [...] 03/16/2023, 03/17, 04/06/2020 CKD HGB USE SMARTSET 16314 03/16/2024 03/16/2023, CKD PHOS USE SMARTSET 64976 03/16/2024 03/16/2023, 0 04/07/2018 Influenza Vaccine (FLU shot) (#1) 2024 07/25/2023, 04/01/2022, 03/26/2021, Additional history exists Albumin/Creatinine Ratio 06/01/202406/01/ 023, 07/04/2022, 04/02/2022, Additional history exists DTaP,Tdap,and [...] filedocumented as of this encounter Care Teams Biology Instructor Relationship Specialty Start Date End Date Marty Saul MD [address] [place] [address] PCP - General Family Medicine 04/26/15 documented as of this encounter
--- OUTSIDE RECORDS SUMMARY | 2024-03-14 05:32 | External Medical Summary | Summary of Care ---
Author Name Unknown Organization [facility] Address [address] [place] [address] Phone [phone] Care Team Providers Care Retail Client Solutions Analyst Name Role Phone Marty Buck MD Primary Care Provider + Reason for Visit * Reason Comments Medication Refill Encounter Details Date Type Department Care Team (Late st Contact Info) Description 02/16/2024 Refill Family Practice [facility] [address] [place] [address] Marty Buck MD [address] [place] [address] Encounter for long-term (current) use of medications* Allergies No known active allergiesdocumented as of this encounter (statuses as of 02/21/2024) Medications Medication Sig Dispensed Refills Start Date [...] Oral Tablet (Lipitor)Indicatio ns:Coronary artery disease involving [place] coronary artery of [place] heart with angina pectoris (HCC) TAKE 1 [...] 180 Tablet 2 05/30/2023 02/18/2024 Discontinued (Refill) Trulicity 0.75 MG/0.5ML Subcutaneous Solution Pen-injector (Dulaglutide) INJECT 0.5ML ( 0.75MG) ONCE A WEEK UNDER THE SKIN. 2 mL 5 08/25/2023 02/16/2024 Discontinued (Refill) documented as of this encounter (statuses as of 02/21/2024) Active Problems Problem Noted Date Diagnosed Date [...] ease 03/06/2019 Coronary artery disease invo lving [place] coronary artery of [place] heart with angina pectoris 09/03/2018 History of [...] as of this encounter (statuses as of 02/21/2024) Resolved Problems Problem Noted Date Diagnosed Date [...] cancer 04/24/2015 04/04/2017 Overview: S/p left nephrectomy 2008 UNILAT INGUINAL HERNIA 04/15/200409/03 documented as of this encounter (statuses as of 02/21/2024) Immunizations Name Administration Dates Next Due COVID-19 mRNA, LNP-s, No Pre serve, 2-Dose Series (Identropy) 10/05/2020,09/14/2020 Covid-19, Mrna, Lnp-s, Pf, B ivalent, 30 Mcg, IM, 12 yrs and above (Pfizer) 04/08/2022 Hepatitis B, 20+ yrs 09/29/2022,01/07/2021,04/06 Pneumococcal Conjugate Vacci ne, 20-valent ([id number]) 04/01/2022 Pneumococcal Polysaccharide PPV23 (Pneumovax) 03/24/2016 Seasonal [...] encounter Miscellaneous Notes * Telephone Encounter - Carlos Robert - 02/21/2024 1:39 AM EDT Received message from [facility] regarding patient needing labs. Patient was notified. Successfully contacted patient and provided [facility] message. * Telephone Encounter - Chula Cook [facility] - 02/20/2024 7:39 AM EDT Rerouting High Priority since OV is less than 30 days away. Thank You, Chula Cook [facility] Clinical Pharmacist [facility] ([facility]) [phone] [id number] 02/20/2024, 7:39 AM * Telephone Encounter - Dennis Edwards [facility] - 02/16/2024 10:59 AM EDTSigned Prescriptions: Disp Refills Trulicity 0.75 MG/0.5ML Subcutaneous Solut*2 mL 1 Sig: INJECT 0.5ML ( 0.75MG) ONCE A WEEK UNDER THE SKIN.Authorizing Provider: MARTY BUCK User: DENNIS EDWARDS * Telephone Encounter - Dennis Edwards [facility] - 02/16/2024 10:57 AM EDT Provided 28 days supply with 1 refill(s). Per refill protocol patient should have A1c, ldl and GFR on file within past year. Reviewed AMP report, Care Gaps/Health Maintenance, medications list, and for any routine labs typically ordered for this patient. Lab orders placed. Please contact patient to advise of labs ordered for blood draw AND URINE specimen (patient will have to be able to void to provide sample). Recommend patient to fast if able for labs. Patient may still have water and regular medications. Advise to obtain labs before his scheduled office visit Visit date not found. Thanks, Dennis Edwards, PharmD Clinical Pharmacist [facility] [phone] 02/16/2024 10:58 AM documented in this encounter Plan of Treatment Upcoming Encounters Date Type Department Care Team (Late st Contact Info) Description 03/19/2024 8:20 AM EDT Office Visit [facility] [address] [phone] Janet Howard [facility]-C [address] [facility] [address] Scheduled Orders Name Type Priority Associated Diagnoses Orde r Schedule LIPID PANEL WITH DIRECT LDL IF TG IS HIGH Lab Routine Encounter for long-term (current) use of medications Expected: 02/16/2024 (Approximate), Expires: 02/15/2025 CBC Lab Routine Encounter for long-term (current) use of medications Expected: 02/16/2024 (Approximate), Expires: 02/15/2025 HEMOGLOBIN A1C Lab Routine Encounter for long-term (current) use of medications Expected: 02/16/2024 (Approximate), Expires: 02/15/2025 BASIC METABOLIC PANEL Lab Routine Encounter for long-term (current) use of medications Expected: 02/16/2024 (Approximate), Expires: 02/15/2025 VITAMIN B12 Lab Routine Encounter for long-term (current) use of medications Expected: 02/16/2024 (Approximate), Expires: 02/15/2025 ALBUMIN / CREATININE RATIO, URINE Lab Routine Encounter for long-term (current) use of medications Expected: 02/23/2024, Expires: 02/15/2025 Scheduled Procedures Name Priority Associated Diagnoses Date/Ti [...] 03/16/2023, 03/17, 04/06/2020 CKD HGB USE SMARTSET 67851 03/16/2024 03/16/2023, CKD PHOS USE SMARTSET 87008 03/16/2024 03/16/2023, 0 04/07/2018 Influenza Vaccine (FLU shot) (#1) 2024 07/25/2023, 04/01/2022, 03/26/2021, Additional history exists Albumin/Creatinine Ratio 06/01/2024 023, 07/04/2022, 04/02/2022, Additional history exists DTaP,Tdap,and Td Vaccines (2 - Td or Tdap) 09/09/2025 09/09/2015 Colonoscopy 09/21/2027 09/20/2022, 01/2023, 07/06/2022, Additional history exists Colorectal Cancer [...] as of this encounter Visit Diagnoses Diagnosis Encounter for long-term (current) use of medications- Primary Encounter for long-term (current) use of other medications documented in this encounter Care Teams Retail Client Solutions Analyst Relationship Specialty Start Date End Date Marty Buck MD [address] [place] [address] PCP - General Family Medicine 04/26/15 documented as of this encounter
--- OUTSIDE RECORDS SUMMARY | 2024-03-14 05:32 | External Medical Summary ---
Author Name Unknown Address Unknown Organization K01:[facility] [place] [address] [place] [address] Laboratory Report Ordering Provider Test Date Status MIGNON BAUMANN 03/12/2024 16:52:11 Final Observation Date Value Abnormality Reference (Units ) Status BUN 03/12/2024 16:52:11 55 Above high normal 6-20 (mg/dL) Final Creatinine 03/12/2024 16:52:11 6.0 Above high normal 0.6-1.2 (mg/dL) Final Glomerular filtration rate/1.73 sq M.predicted [Volume Rate/Area] in Serum, Plasma or Blood by Creatinine-based formula (CKD-EPI) 03/12/2024 16:52:11 10 Below low normal >=60 (mL/min) Final eGFR is calculated based on the CKD-EPI 2020 equation. Sodium 03/12/2024 16:52:11 131 Below low normal 135 -146 (mmol/L) Final Potassium 03/12/2024 16:52:11 3.8 3.5-5.1 (m mol/L) Final Cl 03/12/2024 16:52:11 91 Below low normal 98- 107 (mmol/L) Final CO2 03/12/2024 16:52:11 19 Below low normal 22- 32 (mmol/L) Final Anion gap 03/12/2024 16:52:11 21 Above high normal 7- 15 (mmol/L) Final Glucose 03/12/2024 16:52:11 275 Above high normal 70 -120 (mg/dL) Final Albumin 03/12/2024 16:52:11 3.9 3.8-5.0 (g /dL) Final AST (Aspartate aminotransferase) 03/12/2024 16:52:11 56 Above high normal 10-50 (U/L) Final Alk Phos 03/12/2024 16:52:11 125 35-130 (U/ L) Final Bilirubin, Total 03/12/2024 16:52:11 0.6 <=1 .2 (mg/dL) Final Calcium 03/12/2024 16:52:11 9.3 8.4-10.2 ( mg/dL) Final Protein 03/12/2024 16:52:11 6.4 6.0-8.3 (g /dL) Final ALT (Alanine aminotransferase) 03/12/2024 16:52:11 72 Above high normal 10-50 (U/L) Final Performing Location [facility] [place] - [address] [facility] [address]
--- OUTSIDE RECORDS SUMMARY | 2024-03-14 05:32 | External Medical Summary | Summary of Care ---
Author Name Unknown Organization [facility] Address [address] [place] [address] Phone [phone] Care Team Providers Care Production Line Welder Name Role Phone Marty Saul MD Primary Care Provider + Reason for Visit * Reason Onset Date Comments Health Maintenance 01/04/2024 Encounter Details Date Type Department Care Team (Late st Contact Info) Description 01/04/2024 Telephone Family Practice [facility] [address] [place] [address] Marty Saul MD [address] [place] [address] Health Maintenance Allergies No known active allergiesdocumented as of this encounter (statuses as of 01/04/2024) Medications Medication Sig Dispensed Refills Start Date [...] Oral Tablet (Lipitor)Indications :Coronary artery disease involving [place] coronary artery of [place] heart with angina pectoris (HCC) TAKE 1 [...] THE MORNING 90 Tablet 1 12/20/2023 Active documented as of this encounter (statuses as of 01/04/2024) Active Problems Problem Noted Date Diagnosed Date [...] ease 03/06/2019 Coronary artery disease invo lving [place] coronary artery of [place] heart with angina pectoris 09/03/2018 History of [...] as of this encounter (statuses as of 01/04/2024) Resolved Problems Problem Noted Date Diagnosed Date [...] as of this encounter (statuses as of 01/04/2024) Immunizations Name Administration Dates Next Due COVID-19 mRNA, LNP-s, No Pre serve, 2-Dose Series (Scoreoid) 10/05/2020,09/14/2020 Covid-19, Mrna, Lnp-s, Pf, B ivalent, 30 Mcg, IM, 12 yrs and above (Pfizer) 04/08/2022 Hepatitis B, 20+ yrs 09/29/2022,01/07/2021,04/06 Pneumococcal Conjugate Vacci ne, 20-valent ([id number]) 04/01/2022 Pneumococcal Polysaccharide PPV23 (Pneumovax) 03/24/2016 Seasonal [...] encounter Miscellaneous Notes * Telephone Encounter - Michelle DennyROLLY - 01/04/2024 9:19 AM EDT Care Gaps Comprehensive Care Outreach Last Office/Telemedicine Visit: 03/21/2023 (in office), Visit date not found (telemedicine) Next Office Visit: Visit date not found Hemoglobin AIC Results: Lab Results Component Value Date/Time HEMOGLOBIN A1C - [facility] 7.4 (H) 03/16/2023 07:08 AM HEMOGLOBIN A1C - [facility] 6.8 (H) 04/01/2022 09:32 AM HEMOGLOBIN A1C - [facility] 6.5 (H) 10/07/2021 12:38 PM HEMOGLOBIN A1C - [facility] 8.1 (H) 04/06/2020 10:05 AM HEMOGLOBIN A1C - [facility] 8.2 (H) 09/06/2019 09:46 AM HEMOGLOBIN A1C - [facility] 7.0 (H) 03/06/2019 10:08 AM HEMOGLOBIN A1C, DBS - [facility] >8.0 (H) 05/05/2023 09:24 AM BP Readings from Last 1 Encounters: 07/25/23 122/82 Reviewed Health Maintenance below: Health Maintenance Topic Date Due Diabetic Eye Exam 10/07/2022 COVID-19 Vaccine ( season) 2023 Depression Monitoring 04/01/2023 GFR 09/14/2023 Diabetic Foot Exam 09/30/2023 HbA1c 11/04/2023 CKD HGB USE SMARTSET 31243 03/16/2024 CKD PHOS USE SMARTSET 04329 03/16/2024 B-12 03/16/2024 Ov scheduled at [facility] for dot physical Eye tele eye last time labs Care Gap Outreach Action Taken: Left message documented in this encounter Plan of Treatment Upcoming Encounters Date Type Department Care Team (Late st Contact Info) Description 03/19/2024 8:20 AM EDT Office Visit [facility] [address] [facility] [phone] Janet Howard PA-C [address] [place] [place] [address] Scheduled Procedures Name Priority Associated Diagnoses Date/Ti [...] 03/16/2023, 03/17, 04/06/2020 CKD HGB USE SMARTSET 11434 03/16/2024 03/16/2023, CKD PHOS USE SMARTSET 84233 03/16/2024 03/16/2023, 0 04/07/2018 Albumin/Creatinine Ratio 06/01/202406/01/2 [...] filedocumented as of this encounter Care Teams Production Line Welder Relationship Specialty Start Date End Date Marty aSul MD [address] [place] [address] PCP - General Family Medicine 04/26/15 documented as of this encounter
--- OUTSIDE RECORDS SUMMARY | 2024-03-14 05:32 | External Medical Summary | Summary of Care ---
Author Name Unknown Organization [facility] Address [address] [facility] [place] [address] Phone [phone] Care Team Providers Care Mainspring Strip Inspector Name Role Phone Marty Buck MD Primary Care Provider + Reason for Visit * Reason Comments Medication Refill Encounter Details Date Type Department Care Team (Late st Contact Info) Description 12/18/2023 Refill Family Practice [facility] [address] [place] [address] Marty Buck MD [address] [place] [address] HTN, goal below 130/80 Allergies No known active allergiesdocumented as of this encounter (statuses as of 12/20/2023) Medications Medication Sig Dispensed Refills Start Date [...] DAILY. 180 Tablet 2 05/30/2023 05/29/2024 Active hydroCHLOROthiazid e 25 MG Oral Tablet (Hydrodiuril)Indic ations:HTN, goal below 130/80 TAKE ONE TABLET BY MOUTH IN THE MORNING 90 Tablet 2 05/30/2023 05/29/2024 Active Atorvastatin Calcium 40 MG Oral Tablet (Lipitor)Indicatio ns:Coronary artery disease involving [place] coronary artery of [place] heart with angina pectoris (HCC) TAKE 1 [...] THE MORNING 90 Tablet 1 12/20/2023 Active Lisinopril 40 MG Oral TabletIndications: HTN, goal below 130/80 TAKE ONE TABLET BY MOUTH IN THE MORNING 90 Tablet 1 06/19/2023 12/18/2023 Discontinued (Refill) documented as of this encounter (statuses as of 12/20/2023) Active Problems Problem Noted Date Diagnosed Date [...] ease 03/06/2019 Coronary artery disease invo lving [place] coronary artery of [place] heart with angina pectoris 09/03/2018 History of [...] 04/24/2015 Atrial flutter 04/10/2015 Overview: New dx CVA ICD-10 update of inactive term HTN, goal below 130/80 04/10/2015 History of cardioembolic stroke 04/01/2015 Hx of nonmelanoma skin cancer 04/09/2008 Overview: Hx BCC L neck 2007, curetted (Lucia), BCC forehead near frontal hairline 12/2019 documented as of this encounter (statuses as of 12/20/2023) Resolved Problems Problem Noted Date Diagnosed Date [...] as of this encounter (statuses as of 12/20/2023) Immunizations Name Administration Dates Next Due COVID-19 mRNA, LNP-s, No Pre serve, 2-Dose Series ([employer]) 10/05/2020,09/14/2020 Covid-19, Mrna, Lnp-s, Pf, B ivalent, 30 Mcg, IM, 12 yrs and above (Pfizer) 04/08/2022 Hepatitis B, 20+ yrs 09/29/2022,01/07/2021,04/06 Pneumococcal Conjugate Vacci ne, 20-valent ([id number]) 04/01/2022 Pneumococcal Polysaccharide PPV23 (Pneumovax) 03/24/2016 Seasonal [...] encounter Miscellaneous Notes * Telephone Encounter - Migdalia Vanessa [facility] - 12/20/2023 8:39 AM EDTSigned Prescriptions: Disp Refills Lisinopril 40 MG Oral Tablet 90 Tab*1 Sig: TAKE ONE TABLET BY MOUTH IN THE MORNINGAuthorizing Provider: MARYT BUCK User: MIGDALIA VANESSA---- Electronically signed by Migdalia Vanessa [facility] at 12/20/2023 8:39 AM EDT documented in this encounter Plan of Treatment Upcoming Encounters Date Type Department Care Team (Late st Contact Info) Description 03/19/2024 8:20 AM EDT Office Visit [facility] [address] [place] [address] Janet Howard PA-C [address] [place], [place] [phone] Scheduled Procedures Name Priority Associated Diagnoses Date/Ti me COLONOSCOPY FLEXIBLE PROXIMAL DIAGNOSTIC Recall History of colon polyps Health Maintenance Due Date Last Done Comments Cologuard 2006 Sigmoidoscopy 2006 Diabetic Eye Exam 10/07/2022 10/07/2021, , 09/06/2019 COVID-19 Vaccine ( season) 2023 04/08/2022, 10/05/2020, 09/14/2020 Fecal Occult Blood Test 04/04/2023 04/04/2022, 04/04 GFR 09/14/2023 03/16/2023, 03/17, 03/10/2021, Additional history exists Diabetic Foot Exam 09/30/2023 09/29/2022, 0 10/05/2020, 03/12/2019 HbA1c 11/04/2023 05/05/2023, 02/16, 04/01/2022, Additional history exists B-12 03/16/2024 03/16/2023, 03/17, 04/06/2020 CKD HGB USE SMARTSET 88349 03/16/2024 03/16/2023, CKD PHOS USE SMARTSET 98063 03/16/2024 03/16/2023, 0 04/07/2018 Albumin/Creatinine Ratio 06/01/2024 [...] as of this encounter Visit Diagnoses Diagnosis HTN, goal below 130/80 Unspecified essential hypertension documented in this encounter Care Teams Mainspring Strip Inspector Relationship Specialty Start Date End Date Marty Buck MD [address] [place] [address] PCP - General Family Medicine 04/26/15 documented as of this encounter
--- OUTSIDE RECORDS SUMMARY | 2024-03-14 05:32 | External Medical Summary | Summary of Care ---
Author Name Unknown Organization [facility] Address [address] [place] [address] Phone [phone] Care Team Providers Care Door Clamper Name Role Phone Marty Saul MD Primary Care Provider + Reason for Visit * Reason Onset Date Comments Appointment 03/11/2024 Encounter Details Date Type Department Care Team (Late st Contact Info) Description 03/11/2024 Telephone Family Practice [facility] [address] [place] [address] Marty Saul MD [address] [place] [address] Appointment Allergies No known active allergiesdocumented as [...] Oral Tablet (Lipitor)Indications :Coronary artery disease involving [place] coronary artery of [place] heart with angina pectoris (HCC) TAKE 1 [...] ease 03/06/2019 Coronary artery disease invo lving [place] coronary artery of [place] heart with angina pectoris 09/03/2018 History of [...] mRNA, LNP-s, No Pre serve, 2-Dose Series (dELiAs) 10/05/2020,09/14/2020 Covid-19, Mrna, Lnp-s, Pf, B ivalent, 30 Mcg, IM, 12 yrs and above (Pfizer) 04/08/2022 Hepatitis B, 20+ yrs 09/29/2022,01/07/2021,04/06 Pneumococcal Conjugate Vacci ne, 20-valent ([id number]) 04/01/2022 Pneumococcal Polysaccharide PPV23 (Pneumovax) 03/24/2016 Seasonal [...] Description 03/19/2024 8:20 AM EDT Office Visit [facility] [address] [place] [facility] [place] [phone] Janet Howard PA-C [address] [place] [facility] [place] [address] Scheduled Procedures Name Priority Associated Diagnoses Date/Ti me COLONOSCOPY FLEXIBLE PROXIMAL DIAGNOSTIC Recall History of colon polyps Health Maintenance Due Date Last Done Comments DISCUSS TOBACCO CESSATION (REFER TO SMARTSET #0530) 1961 Cologuard 2006 Sigmoidoscopy 2006 Diabetic Eye Exam 10/07/2022 10/07/2021, , 09/06/2019 COVID-19 Vaccine ( season) 2023 04/08/2022, 10/05/2020, 09/14/2020 Depression Monitoring 04/01/2023 04/01/2022 Fecal Occult Blood Test 04/04/2023 04/04/2022 GFR 09/14/2023 03/16/2023, 03/17, 03/10/2021, Additional history exists Diabetic Foot Exam 09/30/2023 09/29/2022, 0 10/05/2020, 03/12/2019 HbA1c 11/04/2023 05/05/2023, 02/16, 04/01/2022, Additional history exists B-12 03/16/2024 03/16/2023, 03/17, 04/06/2020 CKD HGB USE SMARTSET 21501 03/16/2024 03/16/2023, CKD PHOS USE SMARTSET 90857 03/16/2024 03/16/2023, 0 04/07/2018 Influenza Vaccine (FLU [...] filedocumented as of this encounter Care Teams Door Clamper Relationship Specialty Start Date End Date Marty Saul MD [address] [place] [address] PCP - General Family Medicine 04/26/15 documented as of this encounter
--- OUTSIDE RECORDS SUMMARY | 2024-03-14 05:32 | External Medical Summary | Summary of Care ---
Author Name Unknown Organization [facility] Address [address] [facility] [place] [address] Phone [phone] Care Team Providers Care Azure Developer Name Role Phone Marty Saul MD Primary Care Provider + Encounter Details Date Type Department Care Team (Late st Contact Info) Description 02/21/2024 Orders Only PATIENT PORTAL DO NOT DELETE THIS DEPT USED BY [place] [address] Allergies No known active allergiesdocumented as of this encounter (statuses as of 02/21/2024) Medications Medication Sig Dispensed Refills Start Date End Date Status Aspirin 81 MG TBEC Take by mouth. One tab daily Active buPROPion HCl ER (SR) 150 MG Oral Tablet Extended Release 12 Hour (Wellbutrin SR)Indications:Tobac co use disorder TAKE ONE TABLET BY MOUTH DAILY 90 Tablet 3 05/17/2023 Active hydroCHLOROthiazide 25 MG Oral Tablet (Hydrodiuril)Indicat ions:HTN, goal below 130/80 TAKE ONE TABLET BY MOUTH IN THE MORNING 90 Tablet 2 05/30/2023 05/29/2024 Active Atorvastatin Calcium 40 MG Oral Tablet (Lipitor)Indications :Coronary artery disease involving [place] coronary artery of [place] heart with angina pectoris (HCC) TAKE 1 [...] MOUTH DAILY. 60 Tablet 02/20/2024 02/19/2025 Active documented as of this encounter (statuses [...] ease 03/06/2019 Coronary artery disease invo lving [place] coronary artery of [place] heart with angina pectoris 09/03/2018 History of [...] mRNA, LNP-s, No Pre serve, 2-Dose Series (Umami) 10/05/2020,09/14/2020 Covid-19, Mrna, Lnp-s, Pf, B ivalent, 30 Mcg, IM, 12 yrs and above (Umami) 04/08/2022 Hepatitis B, 20+ yrs 09/29/2022,01/07/2021,04/06 Pneumococcal Conjugate Vacci ne, 20-valent ([id number]) 04/01/2022 Pneumococcal Polysaccharide PPV23 (Pneumovax) 03/24/2016 Seasonal [...] Description 03/19/2024 8:20 AM EDT [facility] [address] [facility] [phone] Janet Howard [facility]-C [address] [facility] [address] Scheduled Procedures Name Priority Associated Diagnoses Date/Ti [...] 03/16/2023, 03/17, 04/06/2020 CKD HGB USE SMARTSET 67725 03/16/2024 03/16/2023, CKD PHOS USE SMARTSET 79246 03/16/2024 03/16/2023, 0 04/07/2018 Influenza Vaccine (FLU [...] filedocumented as of this encounter Care Teams Azure Developer Relationship Specialty Start Date End Date Marty Saul MD [address] [place] [address] PCP - General Family Medicine 04/26/15 documented as of this encounter
--- OUTSIDE RECORDS SUMMARY | 2024-03-14 05:32 | External Medical Summary | Summary of Care ---
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 90 Tablet 2 05/30/2023 02/26/2024 Discontinued (Refill) documented as of this encounter (statuses as of 02/28/2024) Active Problems Problem Noted Date Diagnosed Date [...] ease 03/06/2019 Coronary artery disease invo lving comanche coronary artery of comanche heart with angina pectoris 09/03/2018 History of [...] as of this encounter (statuses as of 02/28/2024) Resolved Problems Problem Noted Date Diagnosed Date [...] as of this encounter (statuses as of 02/28/2024) Immunizations Name Administration Dates Next Due COVID-19 mRNA, LNP-s, No Pre serve, 2-Dose Series (Checkd.In) 10/05/2020,09/14/2020 Covid-19, Mrna, Lnp-s, Pf, B ivalent, 30 Mcg, IM, 12 yrs and above (Pfizer) 04/08/2022 Hepatitis B, 20+ yrs 09/29/2022,01/07/2021,04/06 Pneumococcal Conjugate Vacci ne, 20-valent ([id number]) 04/01/2022 Pneumococcal Polysaccharide PPV23 (Pneumovax) 03/24/2016 Seasonal [...] 8:44 AM EST Sexual Orientation Straight 04/01/2022 8 :50 AM EDT Job Start Date Occupation Industry Not on file Not on file Not on file documented as of this encounter Miscellaneous Notes * Telephone Encounter - Migdalia Vanessa RPh - 02/28/2024 5:19 AM EDTSigned Prescriptions: Disp Refills hydroCHLOROthiazide 25 MG Oral Tablet (Hyd*90 Tab*0 Sig: TAKE ONE TABLET BY MOUTH IN THE MORNING Authorizing Provider: MARTY BUCK Ordering User: MIGDALIA VANESSA Atorvastatin Calcium 40 MG Oral Tablet (Li*90 Tab*0 Sig: TAKE 1 TABLET BY MOUTH DAILY. Authorizing Provider: MARTY BUCK Ordering User: MIGDALIA VANESSA * Telephone Encounter - Migdalia Vanessa RPh - 02/28/2024 5:18 AM EDT RX authorized. Zero refills given until upcoming appt. 03/19/24 Thank you, Migdalia Vanessa, PharmD. Clinical Pharmacist [facility] 02/28/2024, 5:18 AM * Telephone Encounter - User, Interconnect - 02/26/2024 8:33 AM EDTPending Prescriptions: Disp Refills hydroCHLOROthiazide 25 MG Oral Tablet (Hyd*90 Tab*2 Sig: TAKE ONE TABLET BY MOUTH IN THE MORNING Atorvastatin Calcium 40 MG Oral Tablet (Li*90 Tab*2 Sig: TAKE 1 TABLET BY MOUTH DAILY. 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
--- OUTSIDE RECORDS SUMMARY | 2024-03-14 05:33 | External Medical Summary | Summary of Care ---
Author Name Unknown Organization [facility] Address [address] [facility] [place] [address] Phone [phone] Care Team Providers Care Head Girls Golf Coach Name Role Phone Marty Saul MD Primary Care Provider + Reason for Visit * Reason Comments Medication Refill Encounter Details Date Type Department Care Team (Late st Contact Info) Description 09/25/2023 Refill Cardiology, [facility] [address] [place] [address] Natalee Stauffer CRNP [address] [place] [address] HTN, goal below 130/80*; Typical atrial flutter (HCC) Allergies No known active allergiesdocumented as of this encounter (statuses as of 09/26/2023) Medications Medication Sig Dispensed Refills Start Date [...] Oral Tablet (Lipitor)Indicatio ns:Coronary artery disease involving karuk coronary artery of karuk heart with angina pectoris (HCC) TAKE 1 TABLET BY MOUTH DAILY. 90 Tablet 2 05/30/2023 05/29/2024 Active Lisinopril 40 MG Oral TabletIndications: HTN, [...] before bedtime. 270 Tablet 3 09/26/2023 Active Metoprolol Succinate ER 50 MG Oral Tablet Extended Release 24 Hour (toPROL XL) Take 1.5 Tablets by mouth in the morning and 1.5 Tablets before bedtime. 30 Tablet 5 07/25/2023 09/25/2023 Discontinued (Refill) documented as of this encounter (statuses as of 09/26/2023) Active Problems Problem Noted Date Diagnosed Date [...] ease 03/06/2019 Coronary artery disease invo lving karuk coronary artery of karuk heart with angina pectoris 09/03/2018 History of [...] as of this encounter (statuses as of 09/26/2023) Resolved Problems Problem Noted Date Diagnosed Date [...] as of this encounter (statuses as of 09/26/2023) Immunizations Name Administration Dates Next Due COVID-19 mRNA, LNP-s, No Pre serve, 2-Dose Series (NanoLumens) 10/05/2020,09/14/2020 Covid-19, Mrna, Lnp-s, Pf, B ivalent, 30 Mcg, IM, 12 yrs and above (Pfizer) 04/08/2022 Hepatitis B, 20+ yrs 09/29/2022,01/07/2021,04/06 Pneumococcal Conjugate Vacci ne, 20-valent ([id number]) 04/01/2022 Pneumococcal Polysaccharide PPV23 (Pneumovax) 03/24/2016 Seasonal [...] encounter Miscellaneous Notes * Telephone Encounter - Natalee Stauffer CRNP - 09/26/2023 8:57 AM EDT Signed Prescriptions: Disp Refills Metoprolol Succinate ER 50 MG Oral Tablet *270 Ta*3 Sig: Take 1.5 Tablets by mouth in the morning and 1.5 Tablets before bedtime. Authorizing Provider: NATALEE STAUFFER * Telephone Encounter - Erika Medel COT - 09/26/2023 8:27 AM EDTPending Prescriptions: Disp Refills Metoprolol Succinate ER 50 MG Oral Tablet *270 Ta*3 Sig: Take 1.5 Tablets by mouth in the morning and 1.5 Tablets before bedtime. * Telephone Encounter - Erika Medel COT - 09/26/2023 8:27 AM EDT Did you pend patient's preferred pharmacy and medication before forwarding?yes Pharmacy: [facility] Pending Prescriptions: Disp Refills Metoprolol Succinate ER 50 MG Oral Tablet*270 Ta*3 Sig: Take 1.5 Tablets by mouth in the morning and 1.5 Tablets before bedtime. Last Visit: 07/25/2023 (in office), Visit date not found (telemedicine) Next Visit: Visit date not found If no future appointments scheduled, and last appointment is greater than a year ago, please schedule patient for a follow-up appointment Last date the medication was ordered: 07-25-2023 Is this request for a controlled substance?No Urine Drug Screen:No results found for this or any previous visit. Patient Phone Numbers Labs: Lab Results Component Value Date/Time CREAT 1.6 (H) 03/16/2023 07:08 AM CREAT 1.8 (H) 04/06/2020 10:05 AM POTASSIUM 4.2 03/16/2023 07:08 AM POTASSIUM 4.3 04/06/2020 10:05 AM LDLCALC 70 03/06/2019 10:08 AM LDLDIRECT 54 03/16/2023 07:08 AM LDLDIRECT 71 04/06/2020 10:05 AM HGBA1C 7.4 (H) 03/16/2023 07:08 AM HGBA1C 8.1 (H) 04/06/2020 10:05 AM documented in this encounter Plan of Treatment Upcoming Encounters Date Type Department Care Team (Late st Contact Info) Description 10/24/2023 7:15 AM EDT Cardiac Studies Cardiac Studies, [facility] [address] [facility] [place] [id number] 03/19/2024 8:20 AM EDT [facility] [address] [facility] [id number] [facility] Howard [facility]-C [address] [facility] [address] Scheduled Procedures Name Priority Associated Diagnoses Date/Ti [...] 03/16/2023, 03/17, 04/06/2020 CKD HGB USE SMARTSET 04515 03/16/2024 03/16/2023, CKD PHOS USE SMARTSET 16965 03/16/2024 03/16/2023, 0 04/07/2018 Albumin/Creatinine Ratio 06/01/2024 [...] encounter Visit Diagnoses Diagnosis HTN, goal below 130/80- Primary Unspecified essential hypertension Typical atrial flutter (HCC) Atrial flutter documented in this encounter Care Teams Head Girls Golf Coach Relationship Specialty Start Date End Date Marty Saul MD [address] [place] [address] PCP - General Family Medicine 04/26/15 documented as of this encounter
[2024-03-14 07:07] LABS: Hematocrit (blood only) 31.6 % (42.0-52.0); Hemoglobin 10.9 g/dl (14.0-18.0); Mean Corpuscular Hemoglobin 28.9 pg (25.0-34.0); Mean Corpuscular Hgb Conc 34.5 g/dL (32.0-36.0); Mean Corpuscular Volume 83.8 fL (80.0-100.0); Mean Platelet Volume 10.5 fL (9.4-12.4); Platelet Count 311 K/uL (130-400); RDW Coefficient of Variation 13.2 % (11.5-14.5); RDW Standard Deviation 40.3 fL (36.4-46.3); Red Blood Count 3.77 M/uL (4.70-6.10); White Blood Count 12.09 K/ul (4.8-10.8)
[2024-03-14 07:23] LABS: Estimated Average Glucose 183 mg/dl
--- NOTE | 2024-03-14 07:31 | Hospitalist Progress Note ---
Date of Service March 14, 2024 Assessment & Plan (1) Acute cholecystitis: (2) Sepsis: (3) Leukocytosis: (4) Elevated LFTs: (5) MORTEZA (acute kidney injury): (6) CKD (chronic kidney disease), stage III: (7) Abnormal CT of the abdomen: (8) Diabetes mellitus, type II: (9) Hypertension: (10) CAD (coronary artery disease): (11) History of CVA (cerebrovascular accident): (12) Paroxysmal atrial flutter: (13) Tobacco use: (14) History of renal cell cancer: Plan Mr. Marques is a 64 year old male with PMH CAD s/p stent, atrial flutter s/p DCCV, CVA, HTN, DM II, CKD III, renal CA s/p nephrectomy, depression, tobacco use presented to ER with c/o tactile fevers and chills x 5 days and abnormal labs with outpatient WBC: 21 and Cr: 6.0 on 03/12/24. In ER afebrile, BP: 95, R: 20, BP 103/71, 96% on room air. WBC: 15.9, procalcitonin: 0.95. T. bili: 0.5, AST: 48, ALT: 72, alk phos: 106. Imaging revealed acute cholecystitis. Labs revealed elevated lfts as well as acute renal failure. General surgery consulted, recommended Cards consult and clearance prior to surgical intervention. Gallbladder US reviewed: Right kidney: There is mild right-sided hydronephrosis. 3.4 cm cyst seen at the upper pole of the right kidney. 2.6 cm cyst seen in the mid pole region of the right kidney.. 1 cm cyst seen in the mid region of the right kidney. No evidence of cholecystitis or cholelithiasis Mild right hydronephrosis #Sepsis POA #Acute Cholecystitis CT abd/pelvis: 1. Gallbladder wall thickening with associated pericholecystic inflammatory change. This is consistent with an acute cholecystitis. Surgical consultation recommended. 2. Fluid-filled nondistended colon which may represent a diarrheal illness. 3. No evidence for a bowel obstruction. Lactate 1.7 Blood culture NGTD Bolused 2L with adequate reperfusion, maintenance IVF iso known cardiac disease IV Tylenol prn pain Continue Zosyn -Will continue for 48hours while awaiting for blood culture -UA negative -No other clear source of infection, no resp symptoms or other etiology for sepsis General sugery consulted -Request Cardiology consult for clearance prior to surgical intervention -Repeat imaging no signs of acute cholecystitis, if symptoms return plan for HIDA scan -surgery signed off Hold Eliquis for now Trend CBC, CMP #MORTEZA on CKD III BUN: 61, Cr: 4.2. 8/ Cr: 6.0. Prior baseline 1.6 IVF Hold HCTZ, lisinopril Monitor renal functions Monitor urine output Nephrology consult -Discontiue robert and HCTZ -notably improving renal function with fluids #right renal cysts #Microscopic Hematuria #Hx of RCC s/p nephrectomy #Abnormal CT CT abd/pelvis:Multiple right renal hypodense lesions again noted. The dominant hypodense lesion within the upper pole contains a peripheral 14 mm nodular density. This is increased in size in the interval. Follow-up nonemergent dedicated renal MRI is recommended for further evaluation.There is also an indeterminate 10 mm mid right renal lesion. This can also be assessed on follow- up MRI. Followed up Dr. Mitchell for these historically, history of Rcc Will consider further Urology follow up contingent on above #DMTII Hgb A1C 8.0% novolog sliding scale diabetic educator on consult #Coronary artery disease S/P stent to 1st OM #HTN #Hx of NSTEMI 10/2023 Echocardiogram showed a normal LVEF 60-64%. denies CP, SOB Start aspirin for now and resume when able Continue metoprolol succinate, atorvastatin Discontinue lisinopril for now Cardiology following -Resume home medications #Paroxysmal Atrial Fibrillation s/p DCCV Current sinus rhythm Hold Eliquis Continue metoprolol succinate with holding parameters #Prior CVA #Tobacco use Smoking cessation encouraged Nicotine patch DVT Prophylaxis SCDs Admit med tele Full Code as per discussion with pt Follows with Dr Saul for routine care Admission and Anticipated Discharge Date Admission Date: March 13, 2024 Subjective NAEO Reports feeling much improved Denies any abdominal pain or other acute concerns States he felt nauseated on Monday but otherwise no pain with eating Noted poor uop and just generalize malaise and confusion Physical Exam Constitutional: WD/WN, vitals as above Respiratory: normal respiratory effort, lungs clear to auscultation Cardiovascular: RRR, no murmur, no edema Gastrointestinal (Abdomen): normal bowel sounds, soft, nontender, no hepatosplenomegaly Results & Data Results & Data Vital Signs (Past 12 Hours) Vital Signs Temp Pulse Pulse Resp BP Pulse Ox O2 Del Method 03/14/24 04:00 36.9 C 79 18 103/65 93 Room Air 03/14/24 00:49 80 03/13/24 21:25 36.6 C 74 18 116/73 96 Room Air Laboratory Results Short CBC 03/14/24 Range/Units 06:10 WBC 12.09 H (4.8-10.8) K/ul Hgb 10.9 L (14.0-18.0) g/dl Hct 31.6 L (42.0-52.0) % Plt Count 311 (130-400) K/uL BMP 03/14/24 06:10 Sodium 138 Potassium 3.7 Chloride 105 Carbon Dioxide 25 BUN 42 H Creatinine 2.48 H D Glucose 171 H Calcium 8.5 L Liver Function 03/14/24 Range/Units 06:10 Total Bilirubin 0.6 (0.2-1.0) mg/dl AST 33 (13-39) U/L ALT 56 H (7-52) U/L Alkaline Phosphatase 81 (34-104) U/L Albumin 3.4 (3.4-5.0) gm/dl Medications Administered Home Medications Medication Instructions Recorded Confirmed Last Taken Nitroglycerin (Nitrostat) 0.4 mg sublingual UD PRN Chest 03/21/15 03/13/24 Unknown Pain ##30 amoxicillin 875 mg-potassium 1 tab PO BID 03/13/24 03/13/24 03/13/24 clavulanate 125 mg tablet apixaban 5 mg tablet (Eliquis) 5 mg PO BID 03/13/24 03/13/24 03/13/24 aspirin 81 mg tablet,delayed 81 mg PO QAM 03/13/24 03/13/24 03/13/24 release atorvastatin 40 mg tablet 40 mg PO PM 03/13/24 03/13/24 03/12/24 dulaglutide 0.75 mg/0.5 mL 0.75 mg subcut WK 03/13/24 03/13/24 03/10/24 subcutaneous pen injector (Trulicity) hydrochlorothiazide 25 mg tablet 25 mg PO QAM 03/13/24 03/13/24 03/13/24 lisinopril 40 mg tablet 40 mg PO DAILY 03/13/24 03/13/24 03/12/24 metformin 500 mg tablet,extended 500 mg PO BID 03/13/24 03/13/24 03/13/24 release 24 hr metoprolol succinate 50 mg 75 mg PO BID 03/13/24 03/13/24 03/13/24 tablet,extended release 24 hr Active Medications Generic Name Dose Route Start Last Admin Trade Name Blanka COLEMANN Reason Stop Dose Admin Aspirin 81 mg 03/14/24 09:15 03/14/24 09:47 Aspirin 81 Mg Ectab PO 04/13/24 09:14 81 mg QAM HARVEY Administration Atorvastatin Calcium 40 mg 03/13/24 22:07 03/13/24 23:41 Atorvastatin 40 Mg Tab PO 04/12/24 22:06 40 mg PM HARVEY Administration Piperacillin Sod/Tazobactam Sod 4.5 gm in 100 mls @ 25 mls/hr 03/14/24 00:00 03/14/24 15:35 Zosyn IV 03/24/24 00:00 25 mls/hr Q8H HARVEY Administration Metoprolol Succinate 75 mg 03/13/24 22:07 03/14/24 09:48 Metoprolol Succ 25mg Ext Rel Tab PO 04/12/24 22:06 75 mg BID HARVEY Administration Miscellaneous 1 each 03/14/24 08:59 03/14/24 07:48 Remove Nicoderm Patch N/A 04/13/24 08:58 1 each DAILY@0859 [facility] Administration Nicotine 1 patch 03/13/24 22:07 03/14/24 07:48 Nicotine 14 Mg/24 Hr Patch TD 04/12/24 22:06 1 patch QAM HARVEY Administration
[2024-03-14 07:40] LABS: Albumin Globulin Ratio 1.3 (0.9-2); Albumin Level 3.4 gm/dl (3.4-5.0); BUN Creatinine Ratio 16.9 (10-20); Bilirubin,Total 0.6 mg/dl (0.2-1.0); Calcium 8.5 mg/dl (8.6-10.3); Creatinine Clr Calc Pharmacy 37.4 ml/min; Est GFR (African American) 30.8 ml/min; Est GFR (Non-African American) 26.6 ml/min; Globulin 2.6 gm/dl (2.5-4.0); Potassium 3.7 mmol/L (3.5-5.1)
[2024-03-14 08:00] LABS: Basophils # (auto) 0.06 K/uL (0.00-0.20); Basophils % (auto) 0.5 %; Eosinophils # (auto) 0.16 K/uL (0.00-0.50); Eosinophils % (auto) 1.3 %; Immature Granulocytes # (auto) 0.05 K/uL (0.01-0.20); Immature Granulocytes % (auto) 0.4 %; Lymphocytes # (auto) 6.43 K/uL (1.20-3.40); Lymphocytes % (auto) 53.2 %; Monocytes # (auto) 0.68 K/uL (0.11-0.59); Monocytes % (auto) 5.6 %; Neutrophils # (auto) 4.71 K/uL (1.40-6.50)
--- OUTSIDE RECORDS SUMMARY | 2024-03-14 08:15 | External Medical Summary | Summary of Care ---
Author Name Unknown Organization [facility] Address [address] [place] [place] [address] Phone [phone] Care Team Providers Care Coat Operator Insulator Name Role Phone Marty Saul MD Primary Care Provider + Reason for Visit * Reason Comments Fatigue Hot/cold flashes, fa tigue, loss of appetite, since last , covid test was neg at home Encounter Details Date Type Department Care Team (Late st Contact Info) Description 03/12/2024 3:40 PM EDT Office Visit Family [facility] [address] [place] [address] Renetta Anderson, DO [address] [place] [address] Urinary tract infection without hematuria, site unspecified* Allergies No known active allergiesdocumented as of this encounter (statuses as of 03/13/2024) Medications Medication Sig Dispensed Refills Start Date [...] MOUTH DAILY. 90 Tablet 02/28/2024 02/27/2025 Active Amoxicillin-Pot Clavulanate 875-125 MG Oral Tablet (Augmentin)Indicatio ns:Urinary tract infection without hematuria, site unspecified Take 1 Tablet by mouth in the morning and 1 Tablet before bedtime for 7 days. 14 Tablet 03/12/2024 03/19/2024 Active documented as of this encounter (statuses as of 03/13/2024) Active Problems Problem Noted Date Diagnosed Date [...] as of this encounter (statuses as of 03/13/2024) Resolved Problems Problem Noted Date Diagnosed Date [...] as of this encounter (statuses as of 03/13/2024) Immunizations Name Administration Dates Next Due COVID-19 mRNA, LNP-s, No Pre serve, 2-Dose Series (Get Me Listed) 10/05/2020,09/14/2020 Covid-19, Mrna, Lnp-s, Pf, B ivalent, 30 Mcg, IM, 12 yrs and above (Get Me Listed) 04/08/2022 Hepatitis B, 20+ yrs 09/29/2022,01/07/2021,04/06 Pneumococcal Conjugate Vacci ne, 20-valent ([id number]) 04/01/2022 Pneumococcal Polysaccharide PPV23 (Pneumovax) 03/24/2016 Seasonal [...] attempted to quit: 03/18/2023 Smokeless Tobacco: Never Tobacco Cessation:Ready to Q uit: Not Asked; Counseling Given: Not Answered Comments:3-4 cigarettes per day Alcohol Use Standard [...] on file documented as of this encounter Last Filed Vital Signs Vital Sign Reading Time Taken Comments Blood Pressure 78/53 03/12/2024 3:55 PM EDT Pulse 90 03/12/2024 3:55 PM EDT Temperature 37.1 C (98.8 F) 03/12/2024 3:55 PM ED T Respiratory Rate 18 03/12/2024 3:55 PM EDT Oxygen Saturation 96% 03/12/2024 3:55 PM EDT Inhaled Oxygen Concentration - - Weight 94.8 kg (209 lb) 03/12/2024 3:55 PM EDT Height - - Body Mass Index 27.57 03/21/2023 9:26 AM EDT documented in this encounter Progress Notes * Renetta Anderson DO - 03/13/2024 12:45 PM EDT Addendum: labs reviewed upon return to clinic today - sig abnormality, Cr 6.0, BUN 55, elevated procalcitonin, WBC > 21 Called pt - he's at home, says he feels a bit better today, discussed need for ER evaluation, will wait for family to take him Called daughter (cardiology HAT FORMING MACHINE FEEDER) - made aware of results and ER recommendation, will fax note and results to ED, she will see if brother can transport father. * Renetta Anderson, - 03/12/2024 4:05 PM EDT Subjective: Edwin Marques is a 64 year old male. Chief Complaint Patient presents with Fatigue Hot/cold flashes, fatigue, loss of appetite, since last , covid test was neg at home HPI: Pt presents w/daughter. Coworker said he didn't look great 1 week ago, the following day he felt to be having hot flashes/cold flashes, very fatigued since then. Had decreased appetite, vomited this AM. Seemed confused on the phone with his daughter yesterday. Hx of strokes in the past. Has periodic lightheadedness, some sinus congestion. Denies SOB, no cough. No chest pain, pressure or heart palpitations. No nausea, vomited today but no blood, has had decreased appetite for a week. No abd pain. No burning w/urination or increased frequency. No diarrhea. 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 One tab daily buPROPion HCl ER (SR) 150 MG Oral Tablet Extended Release 12 Hour (Wellbutrin SR) TAKE ONE TABLET BY MOUTH DAILY 90 Tablet 3 Apixaban 5 MG Oral Tablet (Eliquis) Take 1 Tablet by mouth in the morning and 1 Tablet before bedtime. 200 Tablet 3 Metoprolol Succinate ER 50 MG Oral Tablet Extended Release 24 Hour (toPROL XL) Take 1.5 Tablets by mouth in the morning and 1.5 Tablets before bedtime. 270 Tablet 3 Lisinopril 40 MG Oral Tablet TAKE ONE TABLET BY MOUTH IN THE MORNING 90 Tablet 1 Trulicity 0.75 MG/0.5ML Subcutaneous Solution Pen-injector (Dulaglutide) INJECT 0.5ML ( 0.75MG) ONCE A WEEK UNDER THE SKIN. 2 mL 1 metFORMIN HCl ER 500 MG Oral Tablet Extended Release 24 Hour (Glucophage XR) TAKE 2 TABLETS BY MOUTH DAILY. 60 Tablet 0 hydroCHLOROthiazide 25 MG Oral Tablet (Hydrodiuril) TAKE ONE TABLET BY MOUTH IN THE MORNING 90 Tablet 0 Atorvastatin Calcium 40 MG Oral Tablet (Lipitor) TAKE 1 TABLET BY MOUTH DAILY. 90 Tablet 0 No current facility-administered medications for this visit. 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 04/24/2015 Prediabetes 09/18/2015 Renal cancer (HCC) '08 S/p nephrectomy S/p nephrectomy Past Surgical History: Procedure Laterality Date COLONOSCOPY, DIAGNOSTIC (RECTUM) 09/15/2015 adenomatous polyps, fair prep, repeat 3 yrs/COLONOSCOPY FLEXIBLE PROXIMAL DIAGNOSTIC performed by Lucrecia Taveras DO at [facility] COLONOSCOPY, DIAGNOSTIC (RECTUM) 10/12/2018 Tortuous colon, repeat 3 yrs/COLONOSCOPY FLEXIBLE PROXIMAL DIAGNOSTIC performed by Lucrecia Taveras DO at [facility] COLONOSCOPY, DIAGNOSTIC (RECTUM) 07/06/2022 poor prep, repeat / COLONOSCOPY FLEXIBLE PROXIMAL DIAGNOSTIC performed by Natalee Correa DO at [facility]COPY [facility] COLONOSCOPY, DIAGNOSTIC (RECTUM) 09/20/2022 normal, repeat 5 yrs / COLONOSCOPY FLEXIBLE PROXIMAL DIAGNOSTIC performed by Obie Murphy MD at [facility]OSCOPY [facility] REMOVAL OF KIDNEY ?08. [facility] Nephrectomy left REMOVAL OF TONSILS, UNDER AGE 13 1971? Tonsils Removal,<13 Y/O [facility] REPAIR INITIAL INGUINAL HERNIA REDUCIBLE AGE 6 OR MORE 1970? around age 11 at [facility] REPAIR INITIAL INGUINAL HERNIA REDUCIBLE AGE 6 OR MORE 04/16/2004 RIH open with mesh, exc of lipoma of cord [facility] Review of patient's allergies indicates: No Known Allergies Objective: BP 78/53 (BP Site: Left Arm, BP Position: Sitting, BP Cuff Size: Regular) | Pulse 90 | Temp 37.1 C (98.8 F) (Tympanic) | Resp 18 | Wt 94.8 kg (209 lb) | SpO2 96% | BMI 27.57 kg/m | BSA 2.21 m Review of Systems: As per HPI, all other ROS neg. Physical Exam: General: alert, healthy, and no distress Ears: External ears normal, Canals clear, TM's Normal Nose: no mucosal erythema, no mucosal edema, no purulent discharge Oropharynx: no exudate, no erythema, lips, buccal mucosa, and tongue normal, and mucous membranes are moist Neck: supple, no adenopathy, thyroid normal size, non-tender, without nodularity Heart: regular rate & rhythm, no murmur, and no gallops Lungs: chest symmetric with normal AP diameter, no chest deformities noted, no chest wall tenderness, lungs clear to auscultation Abdomen: abdomen soft, normal bowel sounds, no masses or organomegaly, and + mild suprapubic tenderness to palpation, no cva tenderness Extremities: no edema Urinary tract infection without hematuria, site unspecified (Primary) - RETURN TO WORK OR SCHOOL - CBC WITH WBC DIFFERENTIAL; Future; Expected date: 03/12/2024 - COMPREHENSIVE METABOLIC PANEL; Future; Expected date: 03/12/2024 - PROCALCITONIN; Future; Expected date: 03/12/2024 - Amoxicillin-Pot Clavulanate 875-125 MG Oral Tablet (Augmentin); Take 1 Tablet by mouth in the morning and 1 Tablet before bedtime for 7 days. - CULTURE, URINE, QUANTITATIVE Pts BP low, some concern for sepsis but no fever, tachycardia; overall appears stable, poss 2/2 dehydration Did suggests UTI - sent for dx, start augmentin, check labs Hold lisinopril for now d/t low BP If low bp persists or has worsening sx, including fever/chills, abd pain, n/v/etc needs to go to the ER Pts daughter is a HAT FORMING MACHINE FEEDER and is aware Other orders - URINALYSIS, POINT OF CARE Follow up: as needed. Renetta Anderson DO documented in this encounter Plan of Treatment Upcoming Encounters Date Type Department Care Team (Late st Contact Info) Description 03/19/2024 8:20 AM EDT Office Visit [facility] [address] [place] [id number] Janet Howard PA-C [address] [place] [address] Pending Results Name Type Priority Associated Diagnoses Date /Time CULTURE, URINE, QUANTITATIVE Lab Routine Urinary tract infection without hematuria, site unspecified 03/12/2024 5:10 PM EDT Scheduled Procedures Name Priority Associated Diagnoses Date/Ti me COLONOSCOPY FLEXIBLE PROXIMAL DIAGNOSTIC Recall History of colon polyps Health Maintenance Due Date Last Done Comments DISCUSS TOBACCO CESSATION (REFER TO SMARTSET #1901) 1961 Cologuard 2006 Sigmoidoscopy 2006 Diabetic Eye Exam 10/07/2022 10/07/2021, , 09/06/2019 COVID-19 Vaccine ( season) 2023 04/08/2022, 10/05/2020, 09/14/2020 Depression Monitoring 04/01/2023 04/01/2022 Fecal Occult Blood Test 04/04/2023 04/04/2022 Diabetic Foot Exam 09/30/2023 09/29/2022, 0 10/05/2020, 03/12/2019 HbA1c 11/04/2023 05/05/2023, 02/16, 04/01/2022, Additional history exists B-12 03/16/2024 03/16/2023, 03/17, 04/06/2020 CKD PHOS USE SMARTSET 33840 03/16/2024 03/16/2023, 0 04/07/2018 Influenza Vaccine (FLU shot) (#1) 2024 07/25/2023, 04/01/2022, 03/26/2021, Additional history exists Albumin/Creatinine Ratio 06/01/20242 023, 07/04/2022, 04/02/2022, Additional history exists GFR 09/12/2024 03/12/2024, 02/16, 04/01/2022, Additional history exists CKD HGB USE SMARTSET 27318 03/12/202503/12, 03/12/2024, 03/16/2023, Additional history exists DTap/Tdap Vaccines (2 - [...] Not on filedocumented as of this encounter Procedures Procedure Name Priority Date/Time Associated Diagnosis Comments URINALYSIS, POINT OF CARE ANDREW 03/12/2024 4:27 PM EDT documented in this encounter Results * (ABNORMAL) PROCALCITONIN (03/12/2024 4:52 PM EDT) Procalcitonin 1.98(H) <0.10 ng/mL 03/13/2024 6:30 AM EDT [facility] Blood Venous blood specimen / Unknown Venipuncture / Unknown 03/12/2024 4:52 PM EDT 03/12/2024 4:52 PM EDT Narrative [facility] - 03/13/2024 6:30 AM EDT Less than 0.5 ng/mL: Low risk for progression to sepsis. Review patients condition for localized infections. 0.5 to 2.0 ng/mL: Intermediate risk for progresion to sepsis. Review underlying conditions. Recommend repeat PCT after 6 hours has elapsed. Greater than 2.0 ng/mL: high risk for progression to sepsis unless other causes are known. Renetta Anderson DO LAB BLOOD ORDERABLE S [facility] [address] [place] [address] * (ABNORMAL) COMPREHENSIVE METABOLIC PANEL (03/12/2024 4:52 PM EDT) BUN 55(H) 6 - 20 mg/dL 03/13/2024 6:45 AM EDT [facility] Creatinine 6.0(H) 0.6 - 1.2 mg/dL 03/13/2024 6:45 AM EDT [facility] Estimated Glomerular Filtration Rate 10(L) >=60 mL/min 03/13/2024 6:45 AM EDT [facility] Comment:eGFR is calculated b ased on the CKD-EPI 2020 equation. Sodium 131(L) 135 - 146 mmol/L 03/13/2024 6:45 AM EDT [facility] Potassium 3.8 3.5 - 5.1 mmol/L 03/13/2024 6:45 AM EDT [facility] Chloride 91(L) 98 - 107 mmol/L 03/13/2024 6:45 AM EDT [facility] CO2 19(L) 22 - 32 mmol/L 03/13/2024 6:45 AM EDT [facility] Anion Gap 21(H) 7 - 15 mmol/L 03/13/2024 6:45 AM EDT [facility] Glucose 275(H) 70 - 120 mg/dL 03/13/2024 6:45 AM EDT [facility] Albumin 3.9 3.8 - 5.0 g/dL 03/13/2024 6:45 AM EDT [facility] AST 56(H) 10 - 50 U/L 03/13/2024 6:45 AM EDT [facility] Alkaline Phosphatase 125 35 - 130 U/L 03/13/2024 6:45 AM EDT [facility] Bilirubin, Total 0.6 <=1.2 mg/dL 03/13/2024 6:45 AM EDT [facility] Calcium 9.3 8.4 - 10.2 mg/dL 03/13/2024 6:45 AM EDT [facility] Protein 6.4 6.0 - 8.3 g/dL 03/13/2024 6:45 AM EDT [facility] ALT 72(H) 10 - 50 U/L 03/13/2024 6:45 AM EDT [facility] Blood Venous blood specimen / Unknown Venipuncture / Unknown 03/12/2024 4:52 PM EDT 03/12/2024 4:52 PM EDT Renetta Anderson DO LAB BLOOD ORDERABLE S [facility] [address] [place] [address] * (ABNORMAL) URINALYSIS, POINT OF CARE (03/12/2024 4:27 PM EDT) Color, Urine Mell(A) Light Yellow, Yellow 03/12/2024 4:29 PM EDT [facility] [place] [facility] Clarity, Urine Slightly Cloudy(A) Clear 03/12/2024 4:29 PM EDT [facility] [place] [facility] Glucose, Urine 100(A) Negative mg/dL 03/12/2024 4:29 PM EDT [facility] [place] [facility] Bilirubin, Urine Moderate(A) Negative 03/12/2024 4:29 PM EDT [facility] [place] [facility] Ketone, Urine 15(A) Negative mg/dL 03/12/2024 4:29 PM EDT [facility] [place] [facility] Specific Dahinda, Urine >=1.030 1.003 - 1.030 03/12/2024 4:29 PM EDT [facility] [place] [facility] Blood, Urine Trace-lysed( A) Negative 03/12/2024 4:29 PM EDT [facility] [place] [facility] pH, Urine 5.0 5.0, 5.5, 6.0, 6.5, 7.0, 7.5 units 03/12/2024 4:29 PM EDT [facility] [place] [facility] Protein, Urine 30(A) Negative mg/dL 03/12/2024 4:29 PM EDT [facility] [place] [facility] Urobilinogen, Urine 4.0(A) 0.2, 1.0 mg/dL 03/12/2024 4:29 PM EDT [facility] [place] [facility] Nitrite, Urine Negative Negative 03/12/2024 4:29 PM EDT [facility] [place] [facility] Esterase, Urine Trace(A) Negative 03/12/2024 4:29 PM EDT [facility] [place] [facility] Urine 03/12/2024 4:27 PM EDT 03/12/2024 4:29 PM EDT Renetta Anderson DO LAB POINT OF CARE T EST DOCKED DEVICE UNSOLICITED RESULTS [facility] [place] [facility] [facility] [place] [address] documented in this encounter Visit Diagnoses Diagnosis Urinary tract infection without hematuria, site unspecified- Primary documented in this encounter Care Teams Coat Operator Insulator Relationship Specialty Start Date End Date Marty Saul MD [address] [place] [address] PCP - General Family Medicine 04/26/15 documented as of this encounter"
--- OUTSIDE RECORDS SUMMARY | 2024-03-14 08:15 | External Medical Summary ---
Author Name Unknown Address Unknown Organization [id number]:[facility] - [address] [place] [address] Laboratory Report Ordering Provider Test Date Status [email or web address] 03/12/2024 17:10:00 Final Observation Date Value Abnormality Reference (Units) Status Bacteria identified in Specimen by Culture 03/12/2024 17:10:00 No significant growth Final Test: Culture, Urine, Quant itative
Specimen Source: Urine, Clean Catch
Specimen Type: Urine
Specimen Date: 03/12/2024 1710
Result Date: 03/13/2024 1545
Result Status: Final result
Resulting Lab: [facility]
[address]
[place] [id number]

CULTURE

No significant growth

null Performing Location [facility] - [address] [place] [address]
--- NOTE | 2024-03-14 08:46 | Cardiology Consultation ---
Date of Consultation March 14, 2024 Assessment & Plan (1) Preoperative cardiovascular examination: Plan Preoperative cardiac assessment -CT of the abdomen and pelvis revealed gallbladder wall thickening with associated pericholecystic inflammatory changes suggestive of an acute cholecystitis. Ultrasound the gallbladder without acute findings. -Patient is in sinus rhythm. Has been held due to his acute illness, and I would continue to hold this. -Given his history of coronary disease and multiple strokes, I have reinitiated aspirin 81 mg daily to start today. I think it would be reasonable for him to continue aspirin without interruption for proposed surgery. -No overt cardiac contraindication to cholecystectomy if felt to be indicated from a surgical standpoint. I would perhaps be reasonable to wait to allow more time for his kidneys to recover before proceeding to the operating room since he is not in acute abdominal distress or overtly septic at present. Agree with empiric antibiotics. -Continue outpatient metoprolol and atorvastatin. Lisinopril on hold due to acute kidney injury. -Consider adding subcutaneous heparin for DVT prophylaxis once surgical course is determined. History of Present Illness Attending Physician: Heydi Graham MD History of Present Illness Edwin Marques is a 64 year old male see in preoperative cardiology evaluation per the request of Dr Graham. Patient notes that a week ago he was at work and started having fevers. He took the next day off and had progressive issues with nauseousness and mild nonbloody diarrhea. He developed progressive lightheadedness and at the time of primary care visit on 03/12/2024 significant hypotension was noted. Laboratory studies were performed that day with findings of acute renal insufficiency, creatinine 6 mg/dL. He was referred to the emergency department and was admitted. He remains on fluid resuscitation with normal saline at 80 mL/h. Creatinine has trended down to 2.48 mg/dL as of today. Blood culture obtained x 1 on 03/13/2024 without growth thus far. A single high-sensitivity troponin was obtained on 03/13/2024 and was normal at 18 PG per mL. Patient denies any recent symptoms of angina. Currently he is comfortable. Denies nauseousness, vomiting, or abdominal pain. Telemetry reveals sinus rhythm in the 70s with premature atrial contractions and premature ventricular contractions noted occasionally. Past Medical History: 1.History of CAD, status post LEXI to the 1st in the setting of an NSTEMI, 2008.Nuclear stress 03/2023 revealed old TX without inducible ischemia, stable compared to 2014 & 2020 2.Paroxysmal atrial flutter, status post DCCV, on Coumadin 3.History of Multiple CVAs in 2009, 2012, in 2014 4.Mildly enlarged aortic root and ascending aorta, 4.3 cm/4.1 cm respectively 5.Hypertension 6.Dyslipidemia 7.Renal cell carcinoma status post left nephrectomy 8.Current tobacco user 9.History of medical noncompliance Allergies Allergy/AdvReac Type Severity Reaction Status Date / Time No Known Allergies Allergy Unknown Verified 03/13/24 17:12 Home Medications Medication Instructions Recorded Confirmed Type Nitroglycerin (Nitrostat) 0.4 mg sublingual UD PRN Chest 03/21/15 03/13/24 Rx Pain ##30 amoxicillin 875 mg-potassium 1 tab PO BID 03/13/24 03/13/24 History clavulanate 125 mg tablet apixaban 5 mg tablet (Eliquis) 5 mg PO BID 03/13/24 03/13/24 History aspirin 81 mg tablet,delayed 81 mg PO QAM 03/13/24 03/13/24 History release atorvastatin 40 mg tablet 40 mg PO PM 03/13/24 03/13/24 History dulaglutide 0.75 mg/0.5 mL 0.75 mg subcut WK 03/13/24 03/13/24 History subcutaneous pen injector (Trulicity) hydrochlorothiazide 25 mg tablet 25 mg PO QAM 03/13/24 03/13/24 History lisinopril 40 mg tablet 40 mg PO DAILY 03/13/24 03/13/24 History metformin 500 mg tablet,extended 500 mg PO BID 03/13/24 03/13/24 History release 24 hr metoprolol succinate 50 mg 75 mg PO BID 03/13/24 03/13/24 History tablet,extended release 24 hr Patient History Medical History High cholesterol Surgical History H/O heart surgery H/O hernia repair (09/30/12) H/O kidney removal (09/30/12) Family History Family/Other Hypertension Heart disease Social History Smoking Status: Current every day smoker Tobacco Type: Cigarettes Cigarettes Per Day: 1/3 PPD; Second Hand Exposure: No; Do You Dip or Chew Tobacco: No; Tobacco Cessation Education Requested by Patient: Yes Hx Alcohol Use: Yes Alcohol type: beer Hx Substance Use: Yes Last Used Substance Other:: 12 years ago Preferred Language: Romanian Communication Ability: Effective Communication Ability Comment: expressive aphasia Hospice Social Worker Required: No Beliefs That Will Affect Care: None marital status: Current Living Situation: Alone current occupational status: employed 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 Other Information That Helps Us Care for You: No Feels Safe at Home: Yes Safety Concerns: Feels Safe At This Time Assistive Devices: Denture - Upper, Denture - Lower and Glasses Assistive Devices Comment: daughter will bring in glasses Review of Systems Review of Systems: All systems reviewed & are unremarkable except as noted in HPI & below Physical Exam Physical Exam: General: no acute distress and stated age Eyes: conjunctiva are pink and non-injected, sclera clear Neck: normal jugular venous pulse, no hepatojugular reflux Chest: normal shape and normal respiratory effort Lungs: clear to auscultation and percussion Cardiac Exam: - regular heart sounds, no murmurs, rubs, or gallops, no jugular venous distention Abdomen: abdomen soft, non-tender, no abnormal masses and no hepatosplenomegaly Musculoskeletal: no gait disturbance, no weakness Extremities: no edema and no cyanosis Neuro:awake, conversant, follows commands, no focal motor deficits Psych: appropriate affect and insight. Results & Data Vital Signs (Past 12 Hours) Vital Signs Temp Pulse Pulse Resp BP BP Pulse Ox 03/14/24 07:42 36.7 C 73 18 97/67 L 99/68 L 96 03/14/24 04:00 36.9 C 79 18 103/65 93 03/14/24 00:49 80 03/13/24 21:25 36.6 C 74 18 116/73 96 O2 Del Method 03/14/24 07:42 Room Air 03/14/24 04:00 Room Air 03/14/24 00:49 03/13/24 21:25 Room Air Laboratory Results Cardiac Enzymes 03/13/24 03/14/24 Range/Units 14:32 06:10 AST 48 H 33 (13-39) U/L Troponin I High Sens 18.0 (0-20) pg/ml Coagulation 03/13/24 Range/Units 14:32 PT 11.0 (9.0-12.0) Seconds APTT 34 H (21-31) Seconds CBC 03/13/24 03/14/24 Range/Units 14:32 06:10 WBC 15.95 H 12.09 H (4.8-10.8) K/ul RBC 4.56 L 3.77 L (4.70-6.10) M/uL Hgb 13.1 L 10.9 L (14.0-18.0) g/dl Hct 39.0 L 31.6 L (42.0-52.0) % Plt Count 351 311 (130-400) K/uL Neut # (Auto) 7.45 H 4.71 (1.40-6.50) K/uL Lymph # (Auto) 7.22 H 6.43 H (1.20-3.40) K/uL [place] # (Auto) 0.99 H 0.68 H (0.11-0.59) K/uL Eos # (Auto) 0.17 0.16 (0.00-0.50) K/uL Baso # (Auto) 0.06 0.06 (0.00-0.20) K/uL Comprehensive Metabolic Panel 03/13/24 03/14/24 Range/Units 14:32 06:10 Sodium 134 L 138 (136-145) mmol/L Potassium 3.8 3.7 (3.5-5.1) mmol/L Chloride 98 105 (98-107) mmol/L Carbon Dioxide 23 25 (21-32) mmol/L BUN 61 H 42 H (6-23) mg/dl Creatinine 4.23 H 2.48 H D (0.6-1.4) mg/dl Glucose 258 H 171 H (70-99(Fasting)) mg/dl Calcium 9.1 8.5 L (8.6-10.3) mg/dl AST 48 H 33 (13-39) U/L ALT 72 H 56 H (7-52) U/L Alkaline Phosphatase 106 H 81 (34-104) U/L Total Protein 7.2 6.0 (6.0-8.3) gm/dl Albumin 3.8 3.4 (3.4-5.0) gm/dl Intake and Output 03/13/24 03/14/24 03/14/24 22:59 06:59 14:59 Intake Total 2099 / 2200 100 / 2200 Balance 2100 / 2200 100 / 2200 Intake: IV 2100 / 2200 100 / 2200 Piperacillin/Tazobactam 4.5 gm 100 / 200 100 / 200 In 100 ml @ 25 mls/hr IV Q8H HAREVY Rx#:[id number] Sodium Chloride 0.9% 1,000 ml @ 2000 / 2000 999 mls/hr IV .Q1H1M HARVEY Rx#: [id number] Other: Other Intake Source NPO Weight 96.8 kg 96.8 kg Weight Measurement Method Standing Scale Built in [facility] Diagnostic Findings Summary of ttecho performed 10/24/23: The LV wall thickness is moderately increased (concentric). The left ventricular wall motion is normal. The qualitative LV ejection fraction is 60-64% (normal). The left atrium is mildly enlarged. The left ventricular diastolic function is mildly abnormal (grade I). No significant valvular disease is present. The aortic root is mildly enlarged, 4.4 cm. The proximal ascending thoracic aorta is mildly enlarged, 4.1 cm. Compared to the report of the previous study dated 04/08/2022, the aortic root and proximal ascending aorta diameter is relatively unchanged. The subtle posterior wall hypokinesis observed at the time of the 22 study is not appreciated on the present study. Summary of nuclear stress test performed in the outpatient 04/12/2022: The combined low intensity exercise/pharmacologic myocardial perfusion imaging study reveals a moderate to large-sized fixed inferior, inferolateral perfusion defect consistent with scar without evidence of ischemia. Gated SPECT imaging reveals inferior, inferolateral hypokinesis to akinesis. The left ventricular ejection fraction can not be adequately assessed with use of gated SPECT due to to few counts in the inferior wall. Consider an alternative imaging strategy such as echocardiogram for evaluation of ejection fraction if indicated. Compared to the report of the prior study dated 03/24/2021, there has been no significant interval change. EKG performed 03/13/2024 interpreted independently: Sinus rhythm at 80 bpm, right bundle branch block, stable findings compared to previous with previously noted intermittent right bundle branch block pattern.
[2024-03-14] MEDS: ASPIRIN 81 MG ECTAB PO ONE (09:27)
[2024-03-14] MEDS: ASPIRIN 81 MG ECTAB PO SCH (09:47)
--- NOTE | 2024-03-14 10:39 | Nephrology Consultation ---
Date of Consultation March 14, 2024 Assessment & Plan (1) MORTEZA (acute kidney injury): MORTEZA with background CKD 3B in a person with Single Kidney with peak creat of 6 from baseline about 1.6 in the setting of Low BP and volume loss with Acute Cholecystitis. Agree with iv fluid Agree with IV abx--renally adjust. Agree with Holding HCTZ and VELMA. keep BP higher than low. Avoid Contrast agent and Avoid NSAID. No Hydronephrosis and no further workup needed given creat trending down fast with good urine (2) CKD (chronic kidney disease), stage III: background CKD 3B in a person with Single Kidney and DM/HTN. Creat still higher than baseline but Coming down fast (3) Acute cholecystitis: reviewed gen surg note and is on IV abx, IV fluid and possible surgery. Avoid Contrast agents and avoid major hemodynamic Changes (4) Complex renal cyst: Noted CT finding with slightly enlarged lesion. Given h/o Kidney cancer and nephrectomy suggest to see his urology as outpt. Dr. Parkinson at [facility] with a urologist who did the nephrectomy. he can have outpatient follow-up with [facility] locally. Plan case complexity moderately high. Total time spent 58 minute. above plan discussed with primary team. Independently reviewed CT abdomen finding and reviewed General Surgery and gastroenterology note History of Present Illness Reason for Consultation: MORTEZA on CKD 3 Attending Physician: Heydi Graham MD History of Present Illness 64/M with CAD s/p stent, atrial flutter s/p DCCV, CVA, HTN, DM II, CKD III ( baseline creat high 1's: 1.6--1.9 ) , renal CA s/p left nephrectomy, depression was sent to ER because of outpt abnormal labs. had creat of 6 and WBC of 21K. 6 days ago had onset of fever, chills and was feeling tired. He also noted a decreased appetite. had 1 episode of emesis. Patient reports has continued chills and decreased appetite. States feeling lightheaded with standing but denies syncope. Hasn't noticed abdominal pain. Seen in outpatient clinic on 03/12/24 and per note review patient noted to be hypotensive was instructed to hold his lisinopril and he was started on Augmentin for possible UTI. 03/12/24 labs came back with Cr: 6.0 and WBC 21 and was instructed to come to ER. Denies hematemesis, melena, HOWARD, syncope, vision changes, neck pain, CP, SOB, orthopnea, palpitations, cough, sore throat, otalgia, rhinorrhea, paresthesias, weakness, extremity weakness, extremity edema, rashes, dysuria, hematuria, urinary frequency. Creat in 4.2 yesterday and now dropped to 2.[address] abdomen showed Ac Cholecystitis and on Abx and IV fluid currently. may need Surgery. Also noted Multiple right renal hypodense lesions with some increase in size of the dominant one. ROS--See HPI. 12 systems otherwise negative Physical Exam Physical Exam: General: no acute distress, awake and alert. Head: normocephalic, atraumatic ENT: normal inspection external ears, nose, mucous membranes moist Neck: supple, trachea midline Lungs: clear, no respiratory distress, no wheezing/rhonchi/rales CV: RRR, no murmur, no pretibial edema Abd: normal BS, soft, +tenderness to deep palpation RUQ without rebound or guarding Ext: no cyanosis, no calf tenderness Neuro: A&O x 3, no focal deficits noted, normal affect Skin: warm, dry Allergies Allergy/AdvReac Type Severity Reaction Status Date / Time No Known Allergies Allergy Unknown Verified 03/13/24 17:12 Home Medications Medication Instructions Recorded Confirmed Type Nitroglycerin (Nitrostat) 0.4 mg sublingual UD PRN Chest 03/21/15 03/13/24 Rx Pain ##30 amoxicillin 875 mg-potassium 1 tab PO BID 03/13/24 03/13/24 History clavulanate 125 mg tablet apixaban 5 mg tablet (Eliquis) 5 mg PO BID 03/13/24 03/13/24 History aspirin 81 mg tablet,delayed 81 mg PO QAM 03/13/24 03/13/24 History release atorvastatin 40 mg tablet 40 mg PO PM 03/13/24 03/13/24 History dulaglutide 0.75 mg/0.5 mL 0.75 mg subcut WK 03/13/24 03/13/24 History subcutaneous pen injector (Trulicity) hydrochlorothiazide 25 mg tablet 25 mg PO QAM 03/13/24 03/13/24 History lisinopril 40 mg tablet 40 mg PO DAILY 03/13/24 03/13/24 History metformin 500 mg tablet,extended 500 mg PO BID 03/13/24 03/13/24 History release 24 hr metoprolol succinate 50 mg 75 mg PO BID 03/13/24 03/13/24 History tablet,extended release 24 hr Patient History Medical History High cholesterol Surgical History H/O heart surgery H/O hernia repair (09/30/12) H/O kidney removal (09/30/12) Family History Family/Other Hypertension Heart disease Social History Smoking Status: Current every day smoker Tobacco Type: Cigarettes Cigarettes Per Day: 1/3 PPD; Second Hand Exposure: No; Do You Dip or Chew Tobacco: No; Tobacco Cessation Education Requested by Patient: Yes Hx Alcohol Use: Yes Alcohol type: beer Hx Substance Use: Yes Last Used Substance Other:: 12 years ago Preferred Language: Latvian Communication Ability: Effective Communication Ability Comment: expressive aphasia Banquet Cook Required: No Beliefs That Will Affect Care: None marital status: Current Living Situation: Alone current occupational status: employed 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 Other Information That Helps Us Care for You: No Feels Safe at Home: Yes Safety Concerns: Feels Safe At This Time Assistive Devices: Denture - Upper, Denture - Lower and Glasses Assistive Devices Comment: daughter will bring in glasses Results & Data Vital Signs (Past 12 Hours) Vital Signs Temp Pulse Pulse Resp BP BP Pulse Ox 03/14/24 09:43 71 117/80 03/14/24 08:00 03/14/24 07:42 36.7 C 73 18 97/67 L 99/68 L 96 03/14/24 07:00 72 03/14/24 04:00 36.9 C 79 18 103/65 93 03/14/24 00:49 80 O2 Del Method 03/14/24 09:43 03/14/24 08:00 Room Air 03/14/24 07:42 Room Air 03/14/24 07:00 03/14/24 04:00 Room Air 03/14/24 00:49 Laboratory Results reviewed CBC renal panel chest x-ray CT abdomen and pelvis both inpatient as well as outpatient
[2024-03-14] MEDS ORDERED: Nursing to Pharmacy Communication SCH (16:00)
--- NOTE | 2024-03-14 16:26 | Surgery Progress Note ---
Date of Service March 14, 2024 Assessment & Plan (1) Cholecystitis: Plan: Patient underwent an ultrasound of the RUQ, negative for acute cholecystitis . Fluid seen on the CT scan likely related to his acute kidney injury. At this point there is no indication for cholecystectomy. Surgery standpoint he may have a diet as tolerated, if his symptoms recur would recommend HIDA scan to rule out acute cholecystitis. Surgical sign off, call with questions or co ncerns. Pt seen and examined with Dr. Contreras Admission and Anticipated Discharge Date Admission Date: March 13, 2024 Supervising Physician Co-Signing Physician Notes Patient seen and examined, labs and imaging reviewed, agree with above. Admitte d for acute kidney injury, during evaluation CT revealed distended gallbladder indicating possible cholecystitis. An ultrasound was performed and there was no cholelithiasis or evidence of cholecystitis. He denies any right upper quadrant pain. He has not had postprandial pain. On exam he is afebrile with stable vitals, abdomen soft, nontender, nondistended. CT and ultrasound personally reviewed and interpreted agree with the assessment of distended gallbladder but no evidence of cholecystitis or cholelithiasis. At this point there is no indication for cholecystectomy. Surgery standpoint he may have a diet as tolerated, if his symptoms recur would recommend HIDA scan to rule out acute cholecystitis. Surgical sign off, call with questions or concerns. Subjective patient reports epigastric pain no RUQ tenderness Review of Systems Gastrointestinal: + abdominal pain; no nausea and no vomit ing Physical Exam Constitutional: cooperative and comfortable; no acute distress Respiratory: normal respiratory effort; no respiratory distress Gastrointestinal (Abdomen): Inspection/Auscultation: abdomen not distended Percussion/Palpation: + abdomen tender and abdomen soft Results & Data Vital Signs (Past 12 Hours) Vital Signs Temp Pulse Pulse Resp BP BP Pulse Ox 03/14/24 13:14 64 03/14/24 12:08 97.9 F 69 16 111/75 98 03/14/24 09:43 71 117/80 03/14/24 08:00 03/14/24 07:42 98.1 F 73 18 97/67 L 99/68 L 96 03/14/24 07:00 72 O2 Del Method 03/14/24 13:14 03/14/24 12:08 Room Air 03/14/24 09:43 03/14/24 08:00 Room Air 03/14/24 07:42 Room Air 03/14/24 07:00 Diagnostic Findings [place], [place] [phone] Ultrasound Report Patient: AMBROCIO ENCINAS Admit Date: 03/13/24 MR#: [id number] Address1: [address]am JIMENEZ Acct ID:[id number] Address2: [address] Date: 1960 [facility] Zip: [place] [address] Age: 64 Location: Sex: M Room/Bed: [facility] Att Phy: Barbi Oneil MD Diagnosis: ABN LABS, SEPTIC FROM BLADDER INFECTION Odalys Phy: Marty Saul MD Service Date: 03/13/24 Fam Phy: Interpreting Phy: Greg Ríos MDAdmit Phy: Barbi Oneil MD Ordering Phy: Franko Simpson PA-C cc: ~ Exam(s): US GALLBLADDER EXAM: US Abdomen Limited, Gallbladder CLINICAL HISTORY: Reason for exam: cholecystitis. TECHNIQUE: Real-time ultrasound of the right upper quadrant with image documentation. COMPARISON: No relevant prior studies available. FINDINGS: Liver: Fatty liver. Gallbladder: Unremarkable. No gallstones. Common bile duct: CBD caliber measuring 3.1 mm in diameter. No stones. No dilation. Pancreas: Unremarkable as visualized. Right kidney: There is mild right-sided hydronephrosis. 3.4 cm cyst seen at the upper pole of the right kidney. 2.6 cm cyst seen in the mid pole region of the right kidney.. 1 cm cyst seen in the mid region of the right kidney. IMPRESSION: No evidence of cholecystitis or cholelithiasis Mild right hydronephrosis Electronically signed by: Greg Ríos MD 03/13/24 21:44 PM Dictated: 03/13/242143 Transcribed: 03/13/242143 PG Care Time/CCT Total # of Minutes Spent Total Time Spent with Patient: Total time spent is greater than 50% in coordination of care (as documented) at patient's floor/unit and/or counseling patient: Coding Level of Care Code 66417 SUB INP/OBS CARE 25MIN Diagnoses Cholecystitis K81.9
[2024-03-14] MEDS: INSULIN ASPART PER UNIT CHARGE SC SCH (17:32)
--- NOTE | 2024-03-14 21:17 | Electrocardiogram Report ---
Test Reason : Blood Pressure : */* mmHG Vent. Rate : 88 BPM Atrial Rate : 88 BPM P-R Int : 148 ms QRS Dur : 120 ms QT Int : 388 ms P-R-T Axes : 56 -23 63 degrees QTcB Int : 469 ms Normal sinus rhythm Right bundle branch block Abnormal ECG When compared with ECG of 22-Apr-2015 09:09, Premature atrial complexes are no longer Present HI interval has decreased Right bundle branch block is now Present Confirmed by Gibson Rodrigez ([id number]) on 03/14/2024 9:17:31 PM Referred By: Confirmed By: Gibson Rodrigez
[2024-03-15 07:01] LABS: Hematocrit (blood only) 34.9 % (42.0-52.0); Hemoglobin 11.9 g/dl (14.0-18.0); Mean Corpuscular Hgb Conc 34.1 g/dL (32.0-36.0); Mean Corpuscular Volume 85.1 fL (80.0-100.0); Mean Platelet Volume 9.8 fL (9.4-12.4); Platelet Count 344 K/uL (130-400); RDW Coefficient of Variation 13.2 % (11.5-14.5); RDW Standard Deviation 40.9 fL (36.4-46.3); White Blood Count 11.93 K/ul (4.8-10.8)
[2024-03-15 07:29] LABS: Albumin Globulin Ratio 1.2 (0.9-2); Albumin Level 3.6 gm/dl (3.4-5.0); BUN Creatinine Ratio 14.9 (10-20); Bilirubin,Total 0.6 mg/dl (0.2-1.0); Calcium 9.1 mg/dl (8.6-10.3); Creatinine Clr Calc Pharmacy 51.8 ml/min; Est GFR (African American) 45.1 ml/min; Est GFR (Non-African American) 38.9 ml/min; Globulin 2.9 gm/dl (2.5-4.0); Magnesium 1.6 mg/dl (1.7-2.4); Phosphorus 2.9 mg/dl (2.5-4.9); Potassium 3.7 mmol/L (3.5-5.1); Total Protein 6.5 gm/dl (6.0-8.3)
[2024-03-15] MEDS: MAGNESIUM SULFATE / D5W 1 GM/100 ML BAG IV SCH (08:24)
[2024-03-15] MEDS: APIXABAN 5 MG TABLET PO SCH (09:10)
--- NOTE | 2024-03-15 15:28 | Cardiology Progress Note ---
Date of Service March 15, 2024 Assessment & Plan (1) MORTEZA (acute kidney injury): Plan: 1. Chronic coronary heart disease, without angina 2. History of paroxysmal atrial flutter, currently in sinus rhythm 3. History of multiple stroke events 4. Dyslipidemia. Patient describes stable cardiac signs and symptoms. General surgery input noted and appreciated. Surgical service had recommended no surgical intervention. Acute renal insufficiency likely due to febrile illness, hypotension, low p.o. input. Creatinine continues to trend toward improvement, had been 6 on 03/12/2024 and is down to 1.81 today. Continue aspirin 81 mg daily. Eliquis already resumed per order of hospital service. Continue metoprolol succinate 75 mg twice daily. Prior to hospital treatment with lisinopril remains on hold given MORTEZA and relative hypotension. Continue outpatient atorvastatin 40 mg daily. Cardiology to sign off. Please call with questions or concerns. Admission and Anticipated Discharge Date Admission Date: March 13, 2024 Subjective Patient seen in cardiology follow-up. Denies fevers or chills. Denies chest discomfort, shortness of breath, or abdominal pain. Telemetry reveals sinus rhythm in the 70s to 80s without arrhythmia. Review of Systems Review of Systems: All systems reviewed & are unremarkable except as noted in HPI & below Physical Exam Physical Exam: General: no acute distress and stated age Eyes: conjunctiva are pink and non-injected, sclera clear Neck: normal jugular venous pulse, no hepatojugular reflux Chest: normal shape and normal respiratory effort Lungs: clear to auscultation and percussion Cardiac Exam: - regular heart sounds, no murmurs, rubs, or gallops, no jugular venous distention Abdomen: abdomen soft, non-tender, no abnormal masses and no hepatosplenomegaly Musculoskeletal: no gait disturbance, no weakness Extremities: no edema and no cyanosis Neuro:awake, conversant, follows commands, no focal motor deficits Psych: appropriate affect and insight. Results & Data Vital Signs (Past 12 Hours) Vital Signs Temp Pulse Pulse Resp BP Pulse Ox O2 Del Method 03/15/24 14:44 77 03/15/24 10:58 36.4 C L 71 18 96/68 L 98 Room Air 03/15/24 08:30 Room Air 03/15/24 08:22 37.1 C 69 16 110/74 97 Room Air 03/15/24 07:19 69 Laboratory Results Cardiac Enzymes 03/15/24 Range/Units 06:21 AST 27 (13-39) U/L CBC 03/15/24 Range/Units 06:21 WBC 11.93 H (4.8-10.8) K/ul RBC 4.10 L (4.70-6.10) M/uL Hgb 11.9 L (14.0-18.0) g/dl Hct 34.9 L (42.0-52.0) % Plt Count 344 (130-400) K/uL Comprehensive Metabolic Panel 03/15/24 Range/Units 06:21 Sodium 137 (136-145) mmol/L Potassium 3.7 (3.5-5.1) mmol/L Chloride 103 (98-107) mmol/L Carbon Dioxide 26 (21-32) mmol/L BUN 27 H (6-23) mg/dl Creatinine 1.81 H D (0.6-1.4) mg/dl Glucose 151 H (70-99(Fasting)) mg/dl Calcium 9.1 (8.6-10.3) mg/dl AST 27 (13-39) U/L ALT 50 (7-52) U/L Alkaline Phosphatase 82 (34-104) U/L Total Protein 6.5 (6.0-8.3) gm/dl Albumin 3.6 (3.4-5.0) gm/dl Intake and Output 03/15/24 03/15/24 03/15/24 06:59 14:59 22:59 Intake Total 200 / 1760 898.333 / 898.333 Output Total 400 / 400 402 / 402 Balance -200 / 1360 496.333 / 496.333 Intake: IV 100 / 1300 293.333 / 293.333 Magnesium Sulfate / D5w 1 gm In 193.333 / 193.333 100 ml @ 50 mls/hr IV Q2H HARVEY Rx#:[id number] Piperacillin/Tazobactam 4.5 gm 100 / 300 100 / 100 In 100 ml @ 25 mls/hr IV Q8H HARVEY Rx#:[id number] Oral 100 / 460 605 / 605 Output: Urine 400 / 400 400 / 400 # Bowel Movements 2 / 2 Other: Weight 99.3 kg
--- NOTE | 2024-03-15 16:46 | Hospitalist Progress Note ---
Date of Service March 15, 2024 Assessment & Plan (1) Acute cholecystitis: (2) Sepsis: (3) Leukocytosis: (4) Elevated LFTs: (5) MORTEZA (acute kidney injury): (6) CKD (chronic kidney disease), stage III: (7) Abnormal CT of the abdomen: (8) Diabetes mellitus, type II: (9) Hypertension: (10) CAD (coronary artery disease): (11) History of CVA (cerebrovascular accident): (12) Paroxysmal atrial flutter: (13) Tobacco use: (14) History of renal cell cancer: Plan Mr. Marques is a 64 year old male with PMH CAD s/p stent, atrial flutter s/p DCCV, CVA, HTN, DM II, CKD III, renal CA s/p nephrectomy, depression, tobacco use presented to ER with c/o tactile fevers and chills x 5 days and abnormal labs with outpatient WBC: 21 and Cr: 6.0 on 03/12/24. In ER afebrile, BP: 95, R: 20, BP 103/71, 96% on room air. WBC: 15.9, procalcitonin: 0.95. T. bili: 0.5, AST: 48, ALT: 72, alk phos: 106. Imaging revealed acute cholecystitis. Labs revealed elevated lfts as well as acute renal failure. General surgery consulted, recommended Cards consult and clearance prior to surgical intervention. Gallbladder US reviewed: Right kidney: There is mild right-sided hydronephrosis. 3.4 cm cyst seen at the upper pole of the right kidney. 2.6 cm cyst seen in the mid pole region of the right kidney.. 1 cm cyst seen in the mid region of the right kidney. No evidence of cholecystitis or cholelithiasis Mild right hydronephrosis #Sepsis POA #Acute Cholecystitis CT abd/pelvis: 1. Gallbladder wall thickening with associated pericholecystic inflammatory change. This is consistent with an acute cholecystitis. Surgical consultation recommended. 2. Fluid-filled nondistended colon which may represent a diarrheal illness. 3. No evidence for a bowel obstruction. Lactate 1.7 Blood culture NGTD Bolused 2L with adequate reperfusion, maintenance IVF iso known cardiac disease IV Tylenol prn pain Continue Zosyn -Will continue for 48hours while awaiting for blood culture -UA negative -No other clear source of infection, no resp symptoms or other etiology for sepsis General sugery consulted -Request Cardiology consult for clearance prior to surgical intervention -Repeat imaging no signs of acute cholecystitis, if symptoms return plan for HIDA scan -surgery signed off Resume eliquis Diarrheal illness noted on CT--transition to augmentin given sepsis on admission for 10 day course of abx Trend CBC, CMP #MORTEZA on CKD III resolving BUN: 61, Cr: 4.2. 8/ Cr: 6.0. Prior baseline 1.6 IVF Hold HCTZ, lisinopril Monitor renal functions Monitor urine output Nephrology consult -Discontiue robert and HCTZ -notably improving renal function with fluids #right renal cysts #Microscopic Hematuria #Hx of RCC s/p nephrectomy #Abnormal CT CT abd/pelvis:Multiple right renal hypodense lesions again noted. The dominant hypodense lesion within the upper pole contains a peripheral 14 mm nodular density. This is increased in size in the interval. Follow-up nonemergent dedicated renal MRI is recommended for further evaluation.There is also an indeterminate 10 mm mid right renal lesion. This can also be assessed on follow- up MRI. Followed up Dr. 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 denies CP, SOB Start aspirin for now and resume when able Continue metoprolol succinate, atorvastatin Discontinue lisinopril for now Cardiology following -Resume home medications #Paroxysmal Atrial Fibrillation s/p DCCV Current sinus rhythm resume Eliquis Continue metoprolol succinate with holding parameters #Prior CVA #Tobacco use Smoking cessation encouraged Nicotine patch DVT Prophylaxis apixapan Possible d/c tomorrow Full Code as per discussion with pt Follows with Dr Saul for routine care Admission and Anticipated Discharge Date Admission Date: March 13, 2024 Subjective NAEO reports feeling well overall Denies nausea vomiting or other acute concerns Physical Exam Constitutional: WD/WN, vitals as above Respiratory: normal respiratory effort, lungs clear to auscultation Cardiovascular: RRR, no murmur, no edema Gastrointestinal (Abdomen): normal bowel sounds, soft, nontender, no hepatosplenomegaly Results & Data Results & Data Vital Signs (Past 12 Hours) Vital Signs Temp Pulse Pulse Resp BP BP Pulse Ox 03/15/24 15:45 36.5 C 74 18 112/79 99 03/15/24 14:44 77 03/15/24 10:58 36.4 C L 71 18 96/68 L 98 03/15/24 08:30 03/15/24 08:22 37.1 C 69 16 110/74 97 03/15/24 07:19 69 O2 Del Method 03/15/24 15:45 Room Air 03/15/24 14:44 03/15/24 10:58 Room Air 03/15/24 08:30 Room Air 03/15/24 08:22 Room Air 03/15/24 07:19 Laboratory Results Short CBC 03/15/24 Range/Units 06:21 WBC 11.93 H (4.8-10.8) K/ul Hgb 11.9 L (14.0-18.0) g/dl Hct 34.9 L (42.0-52.0) % Plt Count 344 (130-400) K/uL BMP 03/15/24 06:21 Sodium 137 Potassium 3.7 Chloride 103 Carbon Dioxide 26 BUN 27 H Creatinine 1.81 H D Glucose 151 H Calcium 9.1 Liver Function 03/15/24 Range/Units 06:21 Total Bilirubin 0.6 (0.2-1.0) mg/dl AST 27 (13-39) U/L ALT 50 (7-52) U/L Alkaline Phosphatase 82 (34-104) U/L Albumin 3.6 (3.4-5.0) gm/dl Medications Administered Home Medications Medication Instructions Recorded Confirmed Last Taken Nitroglycerin (Nitrostat) 0.4 mg sublingual UD PRN Chest 03/21/15 03/13/24 Unknown Pain ##30 amoxicillin 875 mg-potassium 1 tab PO BID 03/13/24 03/13/24 03/13/24 clavulanate 125 mg tablet apixaban 5 mg tablet (Eliquis) 5 mg PO BID 03/13/24 03/13/24 03/13/24 aspirin 81 mg tablet,delayed 81 mg PO QAM 03/13/24 03/13/24 03/13/24 release atorvastatin 40 mg tablet 40 mg PO PM 03/13/24 03/13/24 03/12/24 dulaglutide 0.75 mg/0.5 mL 0.75 mg subcut WK 03/13/24 03/13/24 03/10/24 subcutaneous pen injector (Trulicity) hydrochlorothiazide 25 mg tablet 25 mg PO QAM 03/13/24 03/13/24 03/13/24 lisinopril 40 mg tablet 40 mg PO DAILY 03/13/24 03/13/24 03/12/24 metformin 500 mg tablet,extended 500 mg PO BID 03/13/24 03/13/24 03/13/24 release 24 hr metoprolol succinate 50 mg 75 mg PO BID 03/13/24 03/13/24 03/13/24 tablet,extended release 24 hr Active Medications Generic Name Dose Route Start Last Admin Trade Name Blanka PRN Reason Stop Dose Admin Apixaban 5 mg 03/15/24 09:00 03/15/24 09:10 Apixaban 5 Mg Tablet PO 04/14/24 08:59 5 mg BID HARVEY Administration Aspirin 81 mg 03/14/24 09:15 03/15/24 08:26 Aspirin 81 Mg Ectab PO 04/13/24 09:14 81 mg QAM [facility] Administration Atorvastatin Calcium 40 mg 03/13/24 22:07 03/14/24 21:25 Atorvastatin 40 Mg Tab PO 04/12/24 22:06 40 mg PM HARVEY Administration Insulin Aspart 0 units 03/14/24 16:30 03/15/24 12:55 Insulin Aspart Per Unit Charge SC 04/13/24 00:00 2 units ACHS HARVEY Administration Metoprolol Succinate 75 mg 03/13/24 22:07 03/15/24 08:25 Metoprolol Succ 25mg Ext Rel Tab PO 04/12/24 22:06 75 mg BID HARVEY Administration Miscellaneous 1 each 03/14/24 08:59 03/15/24 08:25 Remove Nicoderm Patch N/A 04/13/24 08:58 1 each DAILY@0859 [facility] Administration Nicotine 1 patch 03/13/24 22:07 03/15/24 08:25 Nicotine 14 Mg/24 Hr Patch TD 04/12/24 22:06 1 patch QAM [facility] Administration
[2024-03-15] MEDS: AMOXICILLIN/CLAVULANATE 875 MG TAB PO SCH (17:44)
[2024-03-16 08:06] LABS: Calcium 9.8 mg/dl (8.6-10.3); Creatinine Clr Calc Pharmacy 54.8 ml/min; Est GFR (African American) 48.3 ml/min; Est GFR (Non-African American) 41.7 ml/min; Potassium 4.1 mmol/L (3.5-5.1)
--- NOTE | 2024-03-16 10:43 | Discharge Summary ---
Discharge Summary Date of Service March 16, 2024 Principal Dx & Hospital Course #1 = Principal Diagnosis (1) Acute cholecystitis: (2) Sepsis: (3) Leukocytosis: (4) Elevated LFTs: (5) MORTEZA (acute kidney injury): (6) CKD (chronic kidney disease), stage III: (7) Abnormal CT of the abdomen: (8) Diabetes mellitus, type II: (9) Hypertension: (10) CAD (coronary artery disease): (11) History of CVA (cerebrovascular accident): (12) Paroxysmal atrial flutter: (13) Tobacco use: (14) History of renal cell cancer: Plan Mr. Marques is a 64 year old male with PMH CAD s/p stent, atrial flutter s/p DCCV, CVA, HTN, DM II, CKD III, renal CA s/p nephrectomy, depression, tobacco use presented to ER with c/o tactile fevers and chills x 5 days and abnormal labs with outpatient WBC: 21 and Cr: 6.0 on 03/12/24. In ER afebrile, BP: 95, R: 20, BP 103/71, 96% on room air. WBC: 15.9, procalcitonin: 0.95. T. bili: 0.5, AST: 48, ALT: 72, alk phos: 106. Imaging revealed acute cholecystitis. Labs revealed elevated lfts as well as acute renal failure. General surgery consulted, recommended Cards consult and clearance prior to surgical intervention. Cards recommended continuing asa and eliquis when able. Gallbladder US reviewed: Right kidney: There is mild right-sided hydronephrosis. 3.4 cm cyst seen at the upper pole of the right kidney. 2.6 cm cyst seen in the mid pole region of the right kidney.. 1 cm cyst seen in the mid region of the right kidney. No evidence of cholecystitis or cholelithiasis Mild right hydronephrosis Ultimately, imaging and symptoms were not consistent with cholecystitis. Patient improved with IV fluids and IV antibitoics. Home blood pressure medications held. Renal function continued to improve. No clear localizing source for infection, patient to continue 7 day course and complete abx with Augmentin given CT revealed ?diarrheal/GI illness. There is suspicion for acute renal failure likely contributing mostly/entirely to presentation. Lisinopril discontinued and HCTZ. Plan for close follow up with PCP and Nephrology, as well as urology given nephrectomy and complex renal cyst. Patient also with diabetes. New glucometer given at d/c. Patient counseled on lifestyle modifications. On day of discharge, patient reports feeling well and without any new concerns. #Sepsis POA, no clear source identified #Acute Cholecystitis, ruled out CT abd/pelvis: 1. Gallbladder wall thickening with associated pericholecystic inflammatory change. This is consistent with an acute cholecystitis. Surgical consultation recommended. 2. Fluid-filled nondistended colon which may represent a diarrheal illness. 3. No evidence for a bowel obstruction. Lactate 1.7 Blood culture NGTD Bolused 2L with adequate reperfusion, maintenance IVF iso known cardiac disease IV Tylenol prn pain General sugery consulted -Request Cardiology consult for clearance prior to surgical intervention -Repeat imaging no signs of acute cholecystitis, if symptoms return plan for HIDA scan -surgery signed off Resumed eliquis Diarrheal illness noted on CT--transition to augmentin, continue till 03/19 #MORTEZA on CKD III resolving BUN: 61, Cr: 4.2. 8/ Cr: 6.0. Prior baseline 1.6 IVF Hold HCTZ, lisinopril Monitor renal functions Monitor urine output Nephrology consult -Discontiue robert and HCTZ -notably improving renal function with fluids follow up nephrology #right renal cysts #Microscopic Hematuria #Hx of RCC s/p nephrectomy #Abnormal CT CT abd/pelvis:Multiple right renal hypodense lesions again noted. The dominant hypodense lesion within the upper pole contains a peripheral 14 mm nodular density. This is increased in size in the interval. Follow-up nonemergent dedicated renal MRI is recommended for further evaluation.There is also an indeterminate 10 mm mid right renal lesion. This can also be assessed on follow- up MRI. Followed up Dr. Mitchell for these historically, history of Rcc Will consider further Urology follow up contingent on above #DMTII Hgb A1C 8.0% novolog sliding scale perioperative educator on consult: glucometer prescribed, discussed lifestyle modifications #Coronary artery disease S/P stent to 1st OM #HTN #Hx of NSTEMI 10/2023 Echocardiogram showed a normal LVEF 60-64%. denies CP, SOB Start aspirin for now and resume when able Continue metoprolol succinate, atorvastatin Discontinue lisinopril for now Cardiology following -Resume home medications #Paroxysmal Atrial Fibrillation s/p DCCV Current sinus rhythm resume Eliquis Continue metoprolol succinate with holding parameters #Prior CVA #Tobacco use Smoking cessation encouraged Nicotine patch Notes For Next Care Provider Repeat BMP in 1 week Medication Changes From Visit Discontinue lisinopril Discontinue HCTZ Complete augmentin course 03/19 Glucometer with lancets/test strips Admission HPI Per Admitting Provider Patient is 64 year old male with PMH CAD s/p stent, atrial flutter s/p DCCV, CVA, HTN, DM II, CKD III, renal CA s/p nephrectomy, depression, tobacco use presented to ER with c/o abnormal labs. Patient states 6 days ago had onset of tactile fever, chills and was feeling tired. He also noted a decreased appetite. 5 days ago had 1 episode of emesis. Patient reports has continued chills and decreased appetite. He has not taken his temperature at home. States yesterday had 2 BMs the last BM being a little bit on the looser side but denies any diarrhea. States feeling lightheaded with standing but denies syncope. Hasn't noticed abdominal pain. Seen in outpatient clinic on 03/12/24 and per note review patient noted to be hypotensive was instructed to hold his l isinopril and he was started on Augmentin for possible UTI. 03/12/24 labs with Cr: 6.0 and WBC: 21 and was instructed to come to ER today. Denies hematemesis, melena, HOWARD, syncope, vision changes, neck pain, CP, SOB, orthopnea, palpitations, cough, sore throat, otalgia, rhinorrhea, paresthesias, weakness, extremity weakness, extremity edema, rashes, dysuria, hematuria, urinary frequency. Admission Exam Per Admitting Provider General: no acute distress, WDWN Head: normocephalic, atraumatic Eyes: PERRL, EOM's intact, conjunctiva non-injected, anicteric ENT: normal inspection external ears, nose, mucous membranes moist Neck: supple, trachea midline Lungs: clear, no respiratory distress, no wheezing/rhonchi/rales CV: RRR, no murmur, no pretibial edema Abd: normal BS, soft, +tenderness to deep palpation RUQ without rebound or guarding Ext: no cyanosis, no calf tenderness Neuro: A&O x 3, no focal deficits noted, normal affect Skin: warm, dry Discharge Exam Constitutional WD/WN, vitals as above Respiratory normal respiratory effort, lungs clear to auscultation Cardiovascular RRR, no murmur, no edema Gastrointestinal (Abdomen) normal bowel sounds, soft, nontender, no hepatosplenomegaly Updated Medication List Medication Instructions Recorded Confirmed Type Nitroglycerin (Nitrostat) 0.4 mg sublingual UD PRN Chest 03/21/15 03/13/24 Rx Pain ##30 amoxicillin 875 mg-potassium 1 tab PO BID 03/13/24 03/13/24 History clavulanate 125 mg tablet apixaban 5 mg tablet (Eliquis) 5 mg PO BID 03/13/24 03/13/24 History aspirin 81 mg tablet,delayed 81 mg PO QAM 03/13/24 03/13/24 History release atorvastatin 40 mg tablet 40 mg PO PM 03/13/24 03/13/24 History dulaglutide 0.75 mg/0.5 mL 0.75 mg subcut WK 03/13/24 03/13/24 History subcutaneous pen injector (Trulicity) metformin 500 mg tablet,extended 500 mg PO BID 03/13/24 03/13/24 History release 24 hr metoprolol succinate 50 mg 75 mg PO BID 03/13/24 03/13/24 History tablet,extended release 24 hr blood sugar diagnostic (Contour #35 ea 03/16/24 Rx Next Test Strips) lancets (Microlet Lancet) #100 ea 03/16/24 Rx Hospital Stay Data Consultations 03/13/24 16:18 ED Decision to Admit Stat 03/13/24 17:02 Consult General Surgery Stat 03/13/24 22:07 Consult General Surgery Routine 03/14/24 07:13 Consult Cardiology Routine 03/14/24 08:00 Consult Nephrology Routine Diagnostic Imagining Performed 03/13/24 16:16 CT abd pelvis wo con Stat 03/13/24 19:08 US GB [US gallbladder] Stat Pending Results Patient Have Any Pending Studies at Discharge: No Discharge Instructions Given to Patient (Per Discharging Provider) You were admitted for progressive weakness and found to have acute kidney failure on top of overlying chronic kidney disease. You were suspected to have cholecystitis initially but repeat imaging suggested otherwise. You are continued on augmetin for 3 more days, please discontinue on Sunday 03/18. Please discontinue your home blood pressure medications -Lisinorpil 40mg daily -HCTZ 25mg daliy Please follow up with your flooring salesperson to monitor your kidney function Please follow up with your PCP in 1 week for labs (BMP to monitor kidney function) Please follow up with Urology for surveillance of complex cyst on your kidney Total Time Total Time Spent Total Time Spent (In Minutes): 45
[2024-03-16 11:27] VITALS: PULSE 78; RESP 20; TEMP 97.7; O2SAT 95
[2024-03-16 13:08] VITALS: BP 107/74
== END 2024-03-16 14:19 | disposition home health service (06) | DRG 872 ==
LOC: ED 14:10 → EDINP 17:49 → SUATTDRO 17:49 → 2N 20:53